=== PATIENT | female | born 1945 | race Caucasian/White ===

== ENCOUNTER 2019-06-25 17:34 | Inpatient (IN) | payer OTHER ==
[~2019-06-25] VITALS: Ht 175.3 cm; Wt 83.4 kg
[~2019-06-25 17:34] MED LIST: ATOR20TA65 PO; CARV25TA79 PO; FLUC200T52 PO; IRBE300T15 PO; LACT1CAP28 PO; METF-849 PO; PHEN-538 PO; SPIR25TA PO
--- NOTE | 2019-06-25 19:50 | ERD ---
ER Documentation Chief Complaint Chief Complaint rectal bleeding on /off 3 mths sent by pmd, pt a&ox4, HPI 74-year-old female sent in by her doctor, Dr. Vallejo, for rectal bleeding that has been intermittent for the past 3 months with associated diarrhea. She states that usually the blood is on the toilet paper but not in the toilet. She had labs done a few days ago, for which she does not know the results. She followed up with her primary care doctor today who told her that she needed to come to the ER and was not given any other information. She complains of chronic dysuria and frequency but has been ruled out for UTI. She also complains of rectal pain and feels like she has hemorrhoids. Her last colonoscopy was about 6 years ago during which time she was diagnosed with polyps but no other abnormalities were found. She denies any dizziness, shortness of breath, chest pain. She complains of suprapubic pain which is chronic, aching, nonradiating. No nausea, vomiting, fever, chills. No hematuria. Of note, patient also fell last week in her bathroom. It was a mechanical fall and she twisted her left ankle and complains of lateral left ankle pain but is able to ambulate on the leg. ROS All systems reviewed and are negative except as per history of present illness. Medications Home Meds Reported Medications Phenazopyridine Hcl* (Pyridium*) 200 Mg Tab, 200 MG PO TID PRN for PAIN, TAB 06/26/19 Carvedilol* (Carvedilol*) 25 Mg Tablet, 25 MG PO DAILY for 90 Days 06/26/19 Spironolactone* (Aldactone*) 25 Mg Tablet, 25 MG PO DAILY for 90 Days 06/26/19 Irbesartan* (Irbesartan*) 300 Mg Tablet, 300 MG PO DAILY for 90 Days, #90 06/26/19 Atorvastatin Calcium (Atorvastatin Calcium) 20 Mg Tablet, 20 MG PO DAILY for 90 Days, #90 TAB 06/26/19 Metformin* (Glucophage*) 500 Mg Tab, 500 MG PO QPM for 90 Days 06/26/19 Allergies Allergies: Coded Allergies: Estrogens (Unverified Allergy, Unknown, 06/25/19) PMhx/Soc History of Surgery: Yes (I called lumpectomy) Hx Cardiac Disorders: Yes (Hypertension, hyperlipidemia) Hx Miscellaneous Medical Probl: Yes ( breast cancer, diabetes) Hx Alcohol Use: No Hx Substance Use: No Hx Tobacco Use: No FmHx Family History: diabetes Physical Exam Vitals Vital Signs Date Temp Pulse Resp B/P (MAP) Pulse Ox O2 O2 Flow FiO2 Time Delivery Rate 06/25/19 97.8 70 18 160/76 97 Room Air 19:10 (104) 06/25/19 97.8 75 18 160/76 97 17:54 (104) Physical Exam Const: No acute distress Head: Atraumatic Eyes: Normal Conjunctiva ENT: Normal External Ears, Nose and Mouth. Neck: Full range of motion. No meningismus. Resp: Clear to auscultation bilaterally Cardio: Regular rate and rhythm, no murmurs Abd: Soft, non tender, non distended. Normal bowel sounds Skin: No petechiae or rashes Back: No midline or flank tenderness Ext: No cyanosis, or edema Neur: Awake and alert Psych: Normal Mood and Affect Result Diagram: 06/29/1943906/29/19439 Results 24 hrs Laboratory Tests Test 06/25/19 19:42 White Blood Count 6.3 10^3/ul Red Blood Count 3.48 10^6/ul Hemoglobin 11.3 g/dl Hematocrit 35.7 % Mean Corpuscular Volume 102.6 fl Mean Corpuscular Hemoglobin 32.5 pg Mean Corpuscular Hemoglobin Concent 31.7 g/dl Red Cell Distribution Width 12.2 % Platelet Count 210 10^3/UL Mean Platelet Volume 8.7 fl Immature Granulocytes % 0.500 % Neutrophils % 69.7 % Lymphocytes % 20.9 % Monocytes % 5.4 % Eosinophils % 3.2 % Basophils % 0.3 % Nucleated Red Blood Cells % 0.0 /100WBC Immature Granulocytes # 0.030 10^3/ul Neutrophils # 4.4 10^3/ul Lymphocytes # 1.3 10^3/ul Monocytes # 0.3 10^3/ul Eosinophils # 0.2 10^3/ul Basophils # 0.0 10^3/ul Nucleated Red Blood Cells # 0.0 10^3/ul Prothrombin Time 12.8 Sec Prothrombin Time Ratio 1.0 INR International Normalized Ratio 0.95 Activated Partial Thromboplast Time 24.7 Sec Sodium Level 142 mmol/L Potassium Level 6.2 mmol/L Chloride Level 115 mmol/L Carbon Dioxide Level 17 mmol/L Anion Gap 10 Blood Urea Nitrogen 40 mg/dl Creatinine 1.45 mg/dl Est Glomerular Filtrat Rate mL/min mL/min Glucose Level 155 mg/dl Calcium Level 10.0 mg/dl Total Bilirubin 1.4 mg/dl Direct Bilirubin 0.00 mg/dl Indirect Bilirubin 1.4 mg/dl Aspartate Amino Transf (AST/SGOT) 18 IU/L Alanine Aminotransferase (ALT/SGPT) 17 IU/L Alkaline Phosphatase 78 IU/L Total Protein 7.3 g/dl Albumin 4.1 g/dl Globulin 3.20 g/dl Albumin/Globulin Ratio 1.28 Current Medications Medications Dose Sig/Koby Start Time Status Last (Trade) Ordered Route PRN Stop Time Admin Dose Reason Admin Sodium 1,000 ml @ Q1H STAT 06/25/19 DC 06/25/19 Chloride 1,000 mls/hr IV 20:25 20:30 06/25/19 21:24 Sodium 30 gm ONCE STAT 06/25/19 DC Polystyrene PO 20:43 Sulfonate 06/25/19 20:45 (Kayexelate 15 Gm Kit (Powder+Sorbi carmelo)) Insulin 10 unit ONCE STAT 06/25/19 DC 06/25/19 Human IVP 20:43 22:24 Regular 06/25/19 20:45 (Humulin R) Procedures/MDM EMERGENT LABS AND DIAGNOSTIC STUDIES: Lab Results above were reviewed and interpreted by me. CBC: Mild anemia, no evidence of infection CMP: Elevated BUN and creatinine, concerning for acute renal failure with associated acidosis and hyperkalemia of 6.2. Elevated bilirubin but otherwise normal liver studies. Coags unremarkable 12-lead EKG was interpreted by Kali Medrano MD: Sinus rhythm with PVCs at 71 bpm Left axis deviation Right bundle branch block No acute ST or T wave changes suggestive of acute ischemia or STEMI. Radiology Results as interpreted by Radiology below were reviewed by SStefani Medrano MD: Left ankle x-ray shows soft tissue swelling, no acute fracture dislocation CT abdomen and pelvis: 1. Thick-walled urinary bladder with edema in the surrounding fat is concerning for cystitis. Recommend correlation with urinalysis. 2. Mild colonic diverticulosis without diverticulitis. The cecum is on a long mesentery and is situated in the left upper quadrant of the abdomen that could predispose to volvulus. Negative for evidence of volvulus or complications at this time. The appendix is not visualized. 3. Scattered pulmonary nodules in the right lower lobe measure up to 0.4 cm. In the absence of risk factors or a known primary neoplasm, no further imaging is required per 2017 Fleischner Society guidelines. In a high risk patient, follow- up low-dose chest CT at 12 months is optional. Alternatively, recommend correlation with previous imaging. 4. Please note that in the absence of intravenous contrast the study does not evaluate the patency of the vasculature. Initial Nursing notes reviewed. Previous Medical Records requested via the Electronic Health Record. EMERGENCY DEPARTMENT COURSE / MEDICAL DECISION MAKING: Patient presents after referral from her primary care doctor for several months of rectal bleeding. Patient is hemodynamically stable but is pale on exam. However work-up did not show any evidence of significant anemia. Her CT did show evidence of diverticulosis, which is likely the etiology of her rectal bleeding, however she will need further work-up with colonoscopy. More importantly, her renal function seems to be impaired on labs done today with evidence of hyperkalemia, for which treatment was initiated. Patient is not stable for discharge and will require further work-up for this and her rectal bleeding. Plan to admit. Critical Care Time: 40 minutes Treatments/Evaluations: Close monitoring and treatment of unstable vital signs, cardiorespiratory, and neurologic status, while maintaining tight balance of fluid, respiratory, and cardiac interventions. This time includes discussing the case with the patient and the patients family. This time does not include all procedures stated elsewhere in this record. This time also includes reviewing old records, labs and radiological studies. This time includes examining and re- examining the patient. Additionally, this time also includes arranging care with admitting and consulting physicians. Accepting Care Team: Current data and ongoing care discussed. Time: Time of admission Primary Provider: Dr. Lombardo Departure Diagnosis: Primary Impression: Chronic GI bleeding Additional Impressions: Hyperkalemia Acute renal failure Acute renal failure type: unspecified Qualified Codes: N17.9 - Acute kidney failure, unspecified Condition: Serious MONE MEDRANO MD Jun 25, 2019 19:50
[2019-06-25] MEDS ORDERED: SOD CHLORIDE 0.9% 1,000 ML IV STA (20:25)
[2019-06-25] MEDS ORDERED: SODIUM POLYSTYRENE 15 GM KIT (POWDER + SORBITOL) PO STA (20:43)
[2019-06-25] MEDS ORDERED: INSULIN REGULAR, HUMAN 100 UNIT/1 ML 3ML VIAL IVP STA (20:43)
[2019-06-25] MEDS ORDERED: DEXTROSE 50% 50 ML SYRINGE IV PRN (21:00)
[2019-06-25] MEDS ORDERED: DEXTROSE 50% 50 ML SYRINGE IV ONE (21:00)
[2019-06-25] MEDS ORDERED: ONDANSETRON 4 MG INJ IV PRN (21:00)
[2019-06-25] MEDS ORDERED: NA POLYST SULFON 15 GM/60 ML BTL PO SCH (21:54)
[2019-06-25] MEDS: ACETAMINOPHEN 325 MG TAB PO PRN (22:24)
[2019-06-25 23:01] VITALS: Ht 175.3 cm; Wt 83.4 kg
[2019-06-25 23:03] VITALS: BP 141/74; PULSE 74; RESP 16
[2019-06-26] MEDS ORDERED: ONDANSETRON 4 MG INJ IV PRN (00:30)
[2019-06-26] MEDS ORDERED: ALBUTEROL/IPRATROPIUM (NEB) 3 ML AMP HHN PRN (00:30)
[2019-06-26] MEDS ORDERED: CEFTRIAXONE 1 GM/50 ML (PMX) 50 ML IVPB SCH (00:30)
[2019-06-26 04:09] VITALS: BP 134/64; PULSE 67; RESP 18
[2019-06-26] MEDS: ACETAMINOPHEN 325 MG TAB PO PRN ×2 (06:06→17:39)
[2019-06-26] MEDS: PANTOPRAZOLE (EC) 40 MG TAB PO SCH ×2 (06:06→17:42)
--- NOTE | 2019-06-26 06:21 | HP ---
Date/Time of Note Date/Time of Note DATE: 06/26/19 TIME: 06:14 Assessment/Plan VTE Prophylaxis SCD applied (from Nsg): Yes Pharmacological prophylaxis: heparin Lines/Catheters IV Catheter Type (from Nrsg): Peripheral IV Urinary Cath still in place: No Assessment/Plan Assessment/Plan 1. Rectal bleeding -Check FOBT -GI consult -Last colonoscopy 6 years ago, per patient, it showed 2 polyps (benign) 2. Diarrhea: Patient was recently diagnosed with UTI and has been taking different antibiotics -Stool studies including C. difficile -See #1 3. Scattered pulmonary nodules -Patient with a history of breast carcinoma status post lumpectomy. Patient never had a chemoradiation. Patient has never been told about pulmonary nodules. -Plan is for a dedicated chest CT. High-resolution of the been preferable, however because of her renal insufficiency, will obtain without -Pulmonary and oncology consult 4. Acute renal insufficiency -IV fluid for now 5. Breast cancer, status post lumpectomy 2 years ago: No chemo/radiation -Per patient, in remission 6. Dyslipidemia: Continue statin 7. History of pulmonary embolism 8. Left ankle pain/swelling -X-ray shows soft tissue swelling with ligamentous and tendinous injury not been able to be excluded -Will consider MRI based on clinical course -Consider podiatry consult 9. Hypertension: Adjust BP meds as needed 10. Type 2 diabetes: Continue metformin Result Diagram: 06/25/19194106/25/192056 Results 24hrs Laboratory Tests Test 06/25/19 19:42 06/25/19 20:57 06/25/19 21:30 White Blood Count 6.3 Red Blood Count 3.48 L Hemoglobin 11.3 L Hematocrit 35.7 L Mean Corpuscular Volume 102.6 H Mean Corpuscular Hemoglobin 32.5 Mean Corpuscular Hemoglobin Concent 31.7 L Red Cell Distribution Width 12.2 Platelet Count 210 Mean Platelet Volume 8.7 Immature Granulocytes % 0.500 H Neutrophils % 69.7 Lymphocytes % 20.9 Monocytes % 5.4 Eosinophils % 3.2 Basophils % 0.3 Nucleated Red Blood Cells % 0.0 Immature Granulocytes # 0.030 Neutrophils # 4.4 Lymphocytes # 1.3 Monocytes # 0.3 Eosinophils # 0.2 Basophils # 0.0 Nucleated Red Blood Cells # 0.0 Prothrombin Time 12.8 Prothrombin Time Ratio 1.0 INR International Normalized Ratio 0.95 Activated Partial Thromboplast Time 24.7 Sodium Level 142 Potassium Level 6.2 *H 5.8 H Chloride Level 115 H Carbon Dioxide Level 17 L Anion Gap 10 Blood Urea Nitrogen 40 H Creatinine 1.45 H Est Glomerular Filtrat Rate mL/min Glucose Level 155 Calcium Level 10.0 Total Bilirubin 1.4 H Direct Bilirubin 0.00 Indirect Bilirubin 1.4 H Aspartate Amino Transf (AST/SGOT) 18 Alanine Aminotransferase (ALT/SGPT) 17 Alkaline Phosphatase 78 Total Protein 7.3 Albumin 4.1 Globulin 3.20 Albumin/Globulin Ratio 1.28 Urine Color DYLAN Urine Clarity CLEAR Urine pH 5.0 Urine Specific [place] 1.013 Urine Ketones NEGATIVE Urine Nitrite POSITIVE A Urine Bilirubin NEGATIVE Urine Urobilinogen 2+ H Urine Leukocyte Esterase NEGATIVE Urine Microscopic RBC 5 Urine Microscopic WBC 176 H Urine Mucus FEW A Urine Hemoglobin NEGATIVE Urine Glucose NEGATIVE Urine Total Protein 1+ H HPI/ROS Admit Date/Time Admit Date/Time Jun 25, 2019 at 20:47 Hx of Present Illness Patient is a 74-year-old female with a history of hypertension, type 2 diabetes, dyslipidemia, breast cancer status post lumpectomy, pulmonary embolism who presented to the ER complaining of rectal bleeding and diarrhea. Symptom has been going on for the past several months. Denied abdominal pain. Patient stated she has been on the process of being referred to a GI doctor for colonoscopy and has been taking time and because of insurance reason. She did have a colonoscopy 6 years ago which showed 2 polyps (benign) When presented to the ER, vitals were stable. Labs shows a hemoglobin of 11.3, creatinine 1.45, potassium 6.2. CT abdomen/pelvis shows cystitis, diverti culosis, scattered pulmonary nodules, measuring 0.4 cm in right lower lung. Left ankle x-ray shows potential soft tissue swelling, ligamentous and tendinous injury is not excluded. Also noted with large plantar calcaneal heel spur PMH/Family/Social Past Medical History Past Surgical Hx: other (see hpi) Family History Significant Family History: no pertinent family hx Social History Alcohol Use: other Smoking Status: Unknown if ever smoked Drug Use: other Exam Exam Constitutional: no acute distress Head: normocephalic, atraumatic Eyes: EOMI, PERRL Respiratory: clear to auscultation, normal air movement Cardiovascular: no skipped beat Gastrointestinal: soft, non-tender Extremities: palpable pulse Medications Current Medications Dextrose (D50w Syringe) ONCE PRN IV DECREASED GLUCOSE; Start 06/25/19 at 21:00 Ondansetron HCl (Zofran Inj) 4 mg ER BRIDGE PRN IV NAUSEA/VOMITING Last administered on 06/25/19at 22:24; Admin Dose 4 MG; Start 06/25/19 at 21:00; Stop 06/26/19 at 20:59 Acetaminophen (Tylenol Tab) 650 mg ER BRIDGE PRN PO .MILD PAIN 1-3 OR TEMP Last administered on 06/26/19at 06:06; Admin Dose 650 MG; Start 06/25/19 at 21:00; Stop 06/26/19 at 20:59 IV Flush (NS 3 ml) 3 ml PER PROTOCOL IV ; Start 06/26/19 at 00:30 Ondansetron HCl (Zofran Inj) 4 mg Q6H PRN IV NAUSEA/VOMITING; Start 06/26/19 at 00:30 Acetaminophen (Tylenol Tab) 650 mg Q6H PRN PO .PAIN 1-3 OR TEMP; Start 06/26/19 at 00:30 Pantoprazole (Protonix Tab) 40 mg BID@0600,1800 PO Last administered on 06/26/19at 06:06; Admin Dose 40 MG; Start 06/26/19 at 06:00 Albuterol/ Ipratropium (Duoneb) 3 ml Q2H RESP THERAPY PRN HHN SHORTNESS OF BREATH; Start 06/26/19 at 00:30 Ceftriaxone Sodium 50 ml @ 100 mls/hr Q24H IVPB Last administered on 06/26/19at 00:30; Admin Dose 100 MLS/HR; Start 06/26/19 at 00:30 Coded Allergies: Estrogens (Unverified Allergy, Unknown, 06/25/19) Social History Smoking Status: Former smoker Exam/Review of Systems Vital Signs Vitals Vital Signs Date Temp Pulse Resp B/P (MAP) Pulse Ox O2 O2 Flow FiO2 Time Delivery Rate 06/26/19 97.5 67 18 134/64 96 Room Air 04:09 (87) TATE CORREIA MD Jun 26, 2019 06:21
[2019-06-26 07:29] VITALS: BP 150/66; PULSE 71; RESP 22
[2019-06-26 11:33] VITALS: BP 140/65; PULSE 67; RESP 22
[2019-06-26] MEDS: PIPER-TAZO 3.375 GM IV (PMX) 100 ML IVPB SCH ×2 (12:04→17:40)
[2019-06-26 15:36] VITALS: BP 104/51; PULSE 66; RESP 22
--- NOTE | 2019-06-26 18:08 | CONS ---
Assessment/Plan Assessment/Plan Hospital Course (Demo Recall) Summary Assessment and Plan: Assessment: Hematochezia Diarrhea x1 year Scattered pulmonary nodules - CT chest- pending KANDI Breast cancer -Status post lumpectomy 2 years ago, No chemo/radiation -Per patient, in remission Dyslipidemia Hx of pulmonary embolism Hypertension Diabetes mellitus, type II Plan: Clear liquid diet in am Will start prep tomorrow for colonoscopy Monday -to further assess chronic diarrhea and hematochezia Endoscopy - risks/benefits/alternatives/indications of procedure and sedation/anesthesia discussed with patient who states understanding and gives informed consent to proceed. Stool studies pending Patient seen in collaboration with Dr. Montejo CC: SEGUNDO MONTEJO MD ; Consultation Date/Type/Reason Admit Date/Time Jun 25, 2019 at 20:47 Date of Consultation: Jun 26, 2019 Type of Consult GI Reason for Consultation Diarrhea Hematochezia Date/Time of Note DATE: 06/26/19 TIME: 17:23 Hx of Present Illness This is a 74-year-old female with past medical history of hypertension, diabetes mellitus, dyslipidemia, breast cancer status post lumpectomy, PE who presented to the hospital with complaints of hematochezia and diarrhea. Patient states she has had hematochezia on and off for an extended period of time but has been progressively worse. She previous had a colonoscopy about 6 years ago per p atient polyps and hemorrhoids. She also notes ongoing diarrhea which started about 1 year ago and seems to make it better or worse. She denies abdominal pain, melena, nausea or vomiting. Stool studies have been ordered and are currently pending. Discussed plan for colonoscopy Monday. I reviewed ris ks/benefits of sedation and procedure patient verbalized understanding and is agreeable. Review of Systems: A 12 system, review was conducted and is negative except as noted in the HPI or here. Past Medical History Home Meds Reported Medications Phenazopyridine Hcl* (Pyridium*) 200 Mg Tab, 200 MG PO TID PRN for PAIN, TAB 06/26/19 Carvedilol* (Carvedilol*) 25 Mg Tablet, 25 MG PO DAILY for 90 Days 06/26/19 Spironolactone* (Aldactone*) 25 Mg Tablet, 25 MG PO DAILY for 90 Days 06/26/19 Irbesartan* (Irbesartan*) 300 Mg Tablet, 300 MG PO DAILY for 90 Days, #90 06/26/19 Atorvastatin Calcium (Atorvastatin Calcium) 20 Mg Tablet, 20 MG PO DAILY for 90 Days, #90 TAB 06/26/19 Metformin* (Glucophage*) 500 Mg Tab, 500 MG PO QPM for 90 Days 06/26/19 Medications Current Medications Dextrose (D50w Syringe) ONCE PRN IV DECREASED GLUCOSE; Start 06/25/19 at 21:00 Ondansetron HCl (Zofran Inj) 4 mg ER BRIDGE PRN IV NAUSEA/VOMITING Last administered on 06/25/19at 22:24; Admin Dose 4 MG; Start 06/25/19 at 21:00; Stop 06/26/19 at 20:59 Acetaminophen (Tylenol Tab) 650 mg ER BRIDGE PRN PO .MILD PAIN 1-3 OR TEMP Last administered on 06/26/19at 06:06; Admin Dose 650 MG; Start 06/25/19 at 21:00; Stop 06/26/19 at 20:59 IV Flush (NS 3 ml) 3 ml PER PROTOCOL IV ; Start 06/26/19 at 00:30 Ondansetron HCl (Zofran Inj) 4 mg Q6H PRN IV NAUSEA/VOMITING; Start 06/26/19 at 00:30 Acetaminophen (Tylenol Tab) 650 mg Q6H PRN PO .PAIN 1-3 OR TEMP; Start 06/26/19 at 00:30 Pantoprazole (Protonix Tab) 40 mg BID@0600,1800 PO Last administered on 06/26/19at 06:06; Admin Dose 40 MG; Start 06/26/19 at 06:00 Albuterol/ Ipratropium (Duoneb) 3 ml Q2H RESP THERAPY PRN HHN SHORTNESS OF BREATH; Start 06/26/19 at 00:30 Piperacillin Sod/ Tazobactam Sod 100 ml @ 200 mls/hr Q6 IVPB Last administered on 06/26/19at 12:04; Admin Dose 200 MLS/HR; Start 06/26/19 at 12:00 Allergies: Coded Allergies: Estrogens (Unverified Allergy, Unknown, 06/25/19) Social History Smoking Status: Former smoker Exam/Review of Systems Exam Vitals Vital Signs Date Temp Pulse Resp B/P (MAP) Pulse Ox O2 O2 Flow FiO2 Time Delivery Rate 06/26/19 98.6 66 22 104/51 96 Room Air 15:36 (68) Exam PHYSICAL EXAMINATION: GENERAL: Alert & oriented x 3, in no acute distress SKIN: No lesions. HEAD: Normocephalic, atraumatic, no tenderness. EYES: Pupils equal reactive to light and accommodation, no discharge. EARS/NOSE AND THROAT: Ears normal, nose normal. NECK: Supple, no masses CHEST: Inspection within normal limits. CARDIOVASCULAR: Heart: Regular rate and rhythm. RESPIRATORY: Lungs clear to auscultation and percussion, no wheezing, no rubs GASTROINTESTINAL AND LIVER: Abdomen: Soft, non tenderness, non-distended, no hernias, normoactive bowel sounds. Rectal: Deferred. EXTREMITIES: No cyanosis, clubbing or edema. Results Result Diagram: 06/26/19 0611 06/26/19 0612 Results 24hrs Laboratory Tests Test 06/25/19 19:42 06/25/19 20:57 06/25/19 21:30 06/26/19 06:11 White Blood Count 6.3 6.6 Red Blood Count 3.48 L 3.32 L Hemoglobin 11.3 L 10.7 L Hematocrit 35.7 L 35.0 L Mean Corpuscular 102.6 H 105.4 H Volume Mean Corpuscular 32.5 32.2 Hemoglobin Mean Corpuscular 31.7 L 30.6 L Hemoglobin Concent Red Cell 12.2 12.5 Distribution Width Platelet Count 210 197 Mean Platelet Volume 8.7 8.9 Immature 0.500 H 0.500 H Granulocytes % Neutrophils % 69.7 65.1 Lymphocytes % 20.9 24.5 Monocytes % 5.4 6.9 Eosinophils % 3.2 2.7 Basophils % 0.3 0.3 Nucleated Red Blood 0.0 0.0 Cells % Immature 0.030 0.030 Granulocytes # Neutrophils # 4.4 4.3 Lymphocytes # 1.3 1.6 Monocytes # 0.3 0.5 Eosinophils # 0.2 0.2 Basophils # 0.0 0.0 Nucleated Red Blood 0.0 0.0 Cells # Prothrombin Time 12.8 Prothrombin Time 1.0 Ratio INR International 0.95 Normalized Ratio Activated 24.7 Partial Thromboplast Time Sodium Level 142 Potassium Level 6.2 *H 5.8 H Chloride Level 115 H Carbon Dioxide Level 17 L Anion Gap 10 Blood Urea Nitrogen 40 H Creatinine 1.45 H Est Glomerular Filtrat Rate mL/min Glucose Level 155 Calcium Level 10.0 Total Bilirubin 1.4 H Direct Bilirubin 0.00 Indirect Bilirubin 1.4 H Aspartate Amino 18 Transf (AST/SGOT) Alanine 17 Aminotransferase (AL T/SGPT) Alkaline Phosphatase 78 Total Protein 7.3 Albumin 4.1 Globulin 3.20 Albumin/Globulin 1.28 Ratio Urine Color DYLAN Urine Clarity CLEAR Urine pH 5.0 Urine Specific 1.013 [place] Urine Ketones NEGATIVE Urine Nitrite POSITIVE A Urine Bilirubin NEGATIVE Urine Urobilinogen 2+ H Urine Leukocyte NEGATIVE Esterase Urine Microscopic 5 RBC Urine Microscopic 176 H WBC Urine Mucus FEW A Urine Hemoglobin NEGATIVE Urine Glucose NEGATIVE Urine Total Protein 1+ H Test 06/26/19 06:12 Sodium Level 142 Potassium Level 5.3 H Chloride Level 119 H Carbon Dioxide Level 15 L Anion Gap 8 Blood Urea Nitrogen 35 H Creatinine 1.24 H Est Glomerular Filtrat Rate mL/min Glucose Level 113 # Calcium Level 9.3 Magnesium Level 1.5 L Total Bilirubin 0.6 Direct Bilirubin 0.00 Indirect Bilirubin 0.6 Aspartate Amino 20 Transf (AST/SGOT) Alanine 19 Aminotransferase (AL T/SGPT) Alkaline Phosphatase 64 Total Protein 6.6 Albumin 3.5 Globulin 3.10 Albumin/Globulin 1.12 Ratio Medications Medication Current Medications Dextrose (D50w Syringe) ONCE PRN IV DECREASED GLUCOSE; Start 06/25/19 at 21:00 Ondansetron HCl (Zofran Inj) 4 mg ER BRIDGE PRN IV NAUSEA/VOMITING Last administered on 06/25/19at 22:24; Admin Dose 4 MG; Start 06/25/19 at 21:00; Stop 06/26/19 at 20:59 Acetaminophen (Tylenol Tab) 650 mg ER BRIDGE PRN PO .MILD PAIN 1-3 OR TEMP Last administered on 06/26/19at 06:06; Admin Dose 650 MG; Start 06/25/19 at 21:00; Stop 06/26/19 at 20:59 IV Flush (NS 3 ml) 3 ml PER PROTOCOL IV ; Start 06/26/19 at 00:30 Ondansetron HCl (Zofran Inj) 4 mg Q6H PRN IV NAUSEA/VOMITING; Start 06/26/19 at 00:30 Acetaminophen (Tylenol Tab) 650 mg Q6H PRN PO .PAIN 1-3 OR TEMP; Start 06/26/19 at 00:30 Pantoprazole (Protonix Tab) 40 mg BID@0600,1800 PO Last administered on 06/26/19at 06:06; Admin Dose 40 MG; Start 06/26/19 at 06:00 Albuterol/ Ipratropium (Duoneb) 3 ml Q2H RESP THERAPY PRN HHN SHORTNESS OF BREATH; Start 06/26/19 at 00:30 Piperacillin Sod/ Tazobactam Sod 100 ml @ 200 mls/hr Q6 IVPB Last administered on 06/26/19at 12:04; Admin Dose 200 MLS/HR; Start 06/26/19 at 12:00 BONNIE SORIANO Jun 26, 2019 17:44
--- NOTE | 2019-06-26 18:27 | PN ---
Date/Time of Note Date/Time of Note DATE: 06/26/19 TIME: 13:08 Assessment/Plan VTE Prophylaxis Risk score (from Ns)>0 risk: 2 SCD applied (from [facility] [place]): Yes Pharmacological prophylaxis: NA/contraindicated Pharm contraindication: bleeding Lines/Catheters IV Catheter Type (from [facility] Saline Lock Urinary Cath still in place: No Assessment/Plan Hospital Course 74-year-old female with a history of hypertension, type 2 diabetes, dyslipidemia, breast cancer status post lumpectomy, pulmonary embolism who presented to the ER complaining of rectal bleeding and diarrhea. 1. Rectal bleeding - Check FOBT / GI consult / Last colonoscopy 6 years ago, per patient, it showed 2 polyps (benign) 2. Diarrhea: Patient was recently diagnosed with UTI and has been taking different antibiotics / Stool studies including C. difficile / See #1 3. Scattered pulmonary nodules: -Patient with a history of breast carcinoma status post lumpectomy. Patient never had a chemoradiation. Patient has never been told about pulmonary nodule - dedicated chest CT. High-resolution of the been preferable, however because of her renal insufficiency, will obtain without / Pulmonary and oncology consult if indicated 4. Acute renal insufficiency with metabolic acidosis and hyperkalemia : IV fluid for now, potassium levels improved / no EKG changes / nephro consult 5. Breast cancer, status post lumpectomy 2 years ago: No chemo/radiation / Per patient, in remission 6. Dyslipidemia: Continue statin 7. History of pulmonary embolism 8. Left ankle pain/swelling : recent mechanical fall / X-ray shows soft tissue swelling with ligamentous and tendinous injury not been able to be excluded / further imaging with CT to r/o occult fracture 9. Hypertension: Adjust BP meds as needed 10. Type 2 diabetes: hold metformin for acidosis and renal failure : ssi and basal insulin for now 11. Nitrite + UTI: f/u cultures / empiric abx 12. Hypomagnesemia: replete Result Diagram: 06/26/19 0611 06/26/19 0612 Results 24hrs Laboratory Tests Test 06/25/19 19:42 06/25/19 20:57 06/25/19 21:30 06/26/19 06:11 White Blood Count 6.3 6.6 Red Blood Count 3.48 L 3.32 L Hemoglobin 11.3 L 10.7 L Hematocrit 35.7 L 35.0 L Mean Corpuscular 102.6 H 105.4 H Volume Mean Corpuscular 32.5 32.2 Hemoglobin Mean Corpuscular 31.7 L 30.6 L Hemoglobin Concent Red Cell 12.2 12.5 Distribution Width Platelet Count 210 197 Mean Platelet Volume 8.7 8.9 Immature 0.500 H 0.500 H Granulocytes % Neutrophils % 69.7 65.1 Lymphocytes % 20.9 24.5 Monocytes % 5.4 6.9 Eosinophils % 3.2 2.7 Basophils % 0.3 0.3 Nucleated Red Blood 0.0 0.0 Cells % Immature 0.030 0.030 Granulocytes # Neutrophils # 4.4 4.3 Lymphocytes # 1.3 1.6 Monocytes # 0.3 0.5 Eosinophils # 0.2 0.2 Basophils # 0.0 0.0 Nucleated Red Blood 0.0 0.0 Cells # Prothrombin Time 12.8 Prothrombin Time 1.0 Ratio INR International 0.95 Normalized Ratio Activated 24.7 Partial Thromboplast Time Sodium Level 142 Potassium Level 6.2 *H 5.8 H Chloride Level 115 H Carbon Dioxide Level 17 L Anion Gap 10 Blood Urea Nitrogen 40 H Creatinine 1.45 H Est Glomerular Filtrat Rate mL/min Glucose Level 155 Calcium Level 10.0 Total Bilirubin 1.4 H Direct Bilirubin 0.00 Indirect Bilirubin 1.4 H Aspartate Amino 18 Transf (AST/SGOT) Alanine 17 Aminotransferase (AL T/SGPT) Alkaline Phosphatase 78 Total Protein 7.3 Albumin 4.1 Globulin 3.20 Albumin/Globulin 1.28 Ratio Urine Color DYLAN Urine Clarity CLEAR Urine pH 5.0 Urine Specific 1.013 [place] Urine Ketones NEGATIVE Urine Nitrite POSITIVE A Urine Bilirubin NEGATIVE Urine Urobilinogen 2+ H Urine Leukocyte NEGATIVE Esterase Urine Microscopic 5 RBC Urine Microscopic 176 H WBC Urine Mucus FEW A Urine Hemoglobin NEGATIVE Urine Glucose NEGATIVE Urine Total Protein 1+ H Test 06/26/19 06:12 Sodium Level 142 Potassium Level 5.3 H Chloride Level 119 H Carbon Dioxide Level 15 L Anion Gap 8 Blood Urea Nitrogen 35 H Creatinine 1.24 H Est Glomerular Filtrat Rate mL/min Glucose Level 113 # Calcium Level 9.3 Magnesium Level 1.5 L Total Bilirubin 0.6 Direct Bilirubin 0.00 Indirect Bilirubin 0.6 Aspartate Amino 20 Transf (AST/SGOT) Alanine 19 Aminotransferase (AL T/SGPT) Alkaline Phosphatase 64 Total Protein 6.6 Albumin 3.5 Globulin 3.10 Albumin/Globulin 1.12 Ratio Subjective 24 Hr Interval Summary Free Text/Dictation no new issues, no rectal bleed today so far Exam/Review of Systems Exam Vitals Vital Signs Date Temp Pulse Resp B/P (MAP) Pulse Ox O2 O2 Flow FiO2 Time Delivery Rate 06/26/19 98.6 66 22 104/51 96 Room Air 15:36 (68) Exam Constitutional: alert, oriented Head: atraumatic, normocephalic Neck: non-tender, supple Respiratory: clear to auscultation Cardiovascular: regular rate and rhythm Gastrointestinal: S/ NT / ND / +BS Extremities: no edema, good radial pulses Results Results 24hrs Laboratory Tests Test 06/25/19 19:42 06/25/19 20:57 06/25/19 21:30 06/26/19 06:11 White Blood Count 6.3 6.6 Red Blood Count 3.48 L 3.32 L Hemoglobin 11.3 L 10.7 L Hematocrit 35.7 L 35.0 L Mean Corpuscular 102.6 H 105.4 H Volume Mean Corpuscular 32.5 32.2 Hemoglobin Mean Corpuscular 31.7 L 30.6 L Hemoglobin Concent Red Cell 12.2 12.5 Distribution Width Platelet Count 210 197 Mean Platelet Volume 8.7 8.9 Immature 0.500 H 0.500 H Granulocytes % Neutrophils % 69.7 65.1 Lymphocytes % 20.9 24.5 Monocytes % 5.4 6.9 Eosinophils % 3.2 2.7 Basophils % 0.3 0.3 Nucleated Red Blood 0.0 0.0 Cells % Immature 0.030 0.030 Granulocytes # Neutrophils # 4.4 4.3 Lymphocytes # 1.3 1.6 Monocytes # 0.3 0.5 Eosinophils # 0.2 0.2 Basophils # 0.0 0.0 Nucleated Red Blood 0.0 0.0 Cells # Prothrombin Time 12.8 Prothrombin Time 1.0 Ratio INR International 0.95 Normalized Ratio Activated 24.7 Partial Thromboplast Time Sodium Level 142 Potassium Level 6.2 *H 5.8 H Chloride Level 115 H Carbon Dioxide Level 17 L Anion Gap 10 Blood Urea Nitrogen 40 H Creatinine 1.45 H Est Glomerular Filtrat Rate mL/min Glucose Level 155 Calcium Level 10.0 Total Bilirubin 1.4 H Direct Bilirubin 0.00 Indirect Bilirubin 1.4 H Aspartate Amino 18 Transf (AST/SGOT) Alanine 17 Aminotransferase (AL T/SGPT) Alkaline Phosphatase 78 Total Protein 7.3 Albumin 4.1 Globulin 3.20 Albumin/Globulin 1.28 Ratio Urine Color DYLAN Urine Clarity CLEAR Urine pH 5.0 Urine Specific 1.013 [place] Urine Ketones NEGATIVE Urine Nitrite POSITIVE A Urine Bilirubin NEGATIVE Urine Urobilinogen 2+ H Urine Leukocyte NEGATIVE Esterase Urine Microscopic 5 RBC Urine Microscopic 176 H WBC Urine Mucus FEW A Urine Hemoglobin NEGATIVE Urine Glucose NEGATIVE Urine Total Protein 1+ H Test 06/26/19 06:12 Sodium Level 142 Potassium Level 5.3 H Chloride Level 119 H Carbon Dioxide Level 15 L Anion Gap 8 Blood Urea Nitrogen 35 H Creatinine 1.24 H Est Glomerular Filtrat Rate mL/min Glucose Level 113 # Calcium Level 9.3 Magnesium Level 1.5 L Total Bilirubin 0.6 Direct Bilirubin 0.00 Indirect Bilirubin 0.6 Aspartate Amino 20 Transf (AST/SGOT) Alanine 19 Aminotransferase (AL T/SGPT) Alkaline Phosphatase 64 Total Protein 6.6 Albumin 3.5 Globulin 3.10 Albumin/Globulin 1.12 Ratio Imaging Imaging PROCEDURE: CT ABDOMEN AND PELVIS WITHOUT CONTRAST CLINICAL INDICATION: 74-year of age, female . Lower abdominal pain. TECHNIQUE: CT of the abdomen and pelvis was performed without intravenous contrast. Oral contrast was not administered prior to the examination. Coronal and sagittal reformatted images were obtained from the axial source images. Images were reviewed on a high-resolution PACS workstation. DICOM images are available. Dose information: Based on a 32 cm phantom, the estimated radiation dose (CTDIvol mGy) for each series in this exam is 17. The estimated cumulative dose (DLP mGy-cm) is 938. One or more of the following dose reduction techniques were used: - Automated exposure control. - Adjustment of the mA and/or kV according to patient size. - Use of iterative reconstruction technique. COMPARISON: None available. FINDINGS: In the absence of intravenous contrast, the study constitutes a limited assessment of the solid organs, bowel and vessels. LUNG BASES: There are scattered pulmonary nodules in the right lower individually measuring up to 0.4 cm (3/9). Mild atelectasis at bilateral lung bases. ABDOMEN/PELVIS: Liver: Normal noncontrast appearance. Gallbladder: Normal noncontrast appearance. Bile ducts: No intrahepatic or extrahepatic biliary duct dilatation. Spleen: Normal noncontrast appearance. Pancreas: Normal noncontrast appearance. Adrenal glands: Normal noncontrast appearance. Kidneys and ureters: Normal noncontrast appearance. Negative for urinary calculi or hydronephrosis. Aorta and IVC: Atherosclerotic calcification and tortuosity of aorta and iliac vessels. Negative for abdominal aortic aneurysm. Lymph nodes: Normal noncontrast appearance. Gastrointestinal tract: There is colonic diverticulosis at the splenic flexure without diverticulitis. There is a mobile cecum on a long mesentery. The inferior ascending colon extends from the right lower quadrant the left upper quadrant mesentery adjacent to the ligament of Treitz which is the position of the cecal pole. Negative for evidence of obstruction. Bowel loops are decompressed and otherwise appear normal. Appendix: Not visualized. Bladder: Partially filled. There is mild thickening of the wall of the urinary bladder with edema in the surrounding fat. Pelvic Organs: Uterus and adnexa are unremarkable for age. Peritoneal cavity: No free fluid or free intraperitoneal air. Abdominal wall: Normal noncontrast appearance. MUSCULOSKELETAL: Bones: Osteopenia and severe degenerative changes in the spine. No suspicious bone lesions. IMPRESSION: 1. Thick-walled urinary bladder with edema in the surrounding fat is concerning for cystitis. Recommend correlation with urinalysis. 2. Mild colonic diverticulosis without diverticulitis. The cecum is on a long mesentery and is situated in the left upper quadrant of the abdomen that could predispose to volvulus. Negative for evidence of volvulus or complications at this time. The appendix is not visualized. 3. Scattered pulmonary nodules in the right lower lobe measure up to 0.4 cm. In the absence of risk factors or a known primary neoplasm, no further imaging is required per 2017 Fleischner Society guidelines. In a high risk patient, follow- up low-dose chest CT at 12 months is optional. Alternatively, recommend correlation with previous imaging. 4. Please note that in the absence of intravenous contrast the study does not evaluate the patency of the vasculature. RPTAT: HCTS Physician Juliano Date Time Electronically viewed and signed by Physician Juliano on 06/25/2019 20:36 CS/ CC: MONE MCKEON MD [phone] Medications Medication Current Medications Dextrose (D50w Syringe) ONCE PRN IV DECREASED GLUCOSE; Start 06/25/19 at 21:00 Ondansetron HCl (Zofran Inj) 4 mg ER BRIDGE PRN IV NAUSEA/VOMITING Last administered on 06/25/19at 22:24; Admin Dose 4 MG; Start 06/25/19 at 21:00; Stop 06/26/19 at 20:59 Acetaminophen (Tylenol Tab) 650 mg ER BRIDGE PRN PO .MILD PAIN 1-3 OR TEMP Last administered on 06/26/19at 17:39; Admin Dose 650 MG; Start 06/25/19 at 21:00; Stop 06/26/19 at 20:59 IV Flush (NS 3 ml) 3 ml PER PROTOCOL IV ; Start 06/26/19 at 00:30 Ondansetron HCl (Zofran Inj) 4 mg Q6H PRN IV NAUSEA/VOMITING; Start 06/26/19 at 00:30 Acetaminophen (Tylenol Tab) 650 mg Q6H PRN PO .PAIN 1-3 OR TEMP; Start 06/26/19 at 00:30 Pantoprazole (Protonix Tab) 40 mg BID@0600,1800 PO Last administered on 06/26/19at 17:42; Admin Dose 40 MG; Start 06/26/19 at 06:00 Albuterol/ Ipratropium (Duoneb) 3 ml Q2H RESP THERAPY PRN HHN SHORTNESS OF ELIZABETH TH; Start 06/26/19 at 00:30 Piperacillin Sod/ Tazobactam Sod 100 ml @ 200 mls/hr Q6 IVPB Last administered on 06/26/19at 17:40; Admin Dose 200 MLS/HR; Start 06/26/19 at 12:00 JOSEFINA WEEMS Jun 26, 2019 18:25
[2019-06-26 20:00] VITALS: BP 141/68; PULSE 73; RESP 18
[2019-06-26] MEDS: LACTOBACILLUS RHAMNOSUS CAP PO SCH (21:46)
[2019-06-27] VITALS: BP 135/63; PULSE 74; RESP 18
[2019-06-27] MEDS: PIPER-TAZO 3.375 GM IV (PMX) 100 ML IVPB SCH ×4 (00:39→17:36)
[2019-06-27 05:00] VITALS: BP 137/71; PULSE 77; RESP 18
[2019-06-27] MEDS: PANTOPRAZOLE (EC) 40 MG TAB PO SCH ×2 (05:33→17:35)
[2019-06-27 07:40] VITALS: BP 118/83; PULSE 76; RESP 22
[2019-06-27] MEDS ORDERED: MAGNESIUM SULFATE 2 GM/50 ML 50 ML IVPB ONE (08:00)
[2019-06-27] MEDS: LACTOBACILLUS RHAMNOSUS CAP PO SCH ×2 (08:38→21:14)
--- NOTE | 2019-06-27 10:10 | CONS ---
DATE OF ADMISSION: 06/25/2019 DATE OF CONSULTATION: 06/27/2019 TYPE OF CONSULTATION: Nephrology. REASON FOR CONSULTATION: Acute kidney injury. PHYSICIAN REQUESTING CONSULT: Josefina Weems MD. HISTORY OF PRESENT ILLNESS: This is a 74-year-old female with a past medical history of hypertension , history of diabetes, recent diagnosis of CKD, who presents to [facility] for rect al bleeding, diarrhea. The patient says she has been having symptoms ongoing for the past several mo nths. The patient states that her rectal bleeding has worsened. As a result, she came to [facility]. Upon arrival, patient had a CT scan of abdomen and pelvis which showed findings of cystiti s, diverticulosis, scattered pulmonary nodules. The patient also had a laboratory data drawn that sh owed elevated creatinine 1.45, potassium 6.2. The patient was placed on IV fluids and admitted to [facility]. In terms of patient's renal history, the patient states that she has been recently diagnosed with chr onic kidney disease and does not know what her baseline creatinine is. The patient also states that she has been on Aldactone and has occasionally been taking potassium supplements. She denies any ret inopathy or neuropathy. PAST MEDICAL HISTORY: As stated above, history of CKD, history of diabetes, hypertension, history of pulmonary embolism History of breast cancer status post lumpectomy. PAST SURGICAL HISTORY: Status post lumpectomy. FAMILY HISTORY: Kidney disease. SOCIAL HISTORY: Former smoker. MEDICATIONS: Have been reviewed. ALLERGIES: Have been reviewed. REVIEW OF SYSTEMS: A 14-point review of systems was conducted. Pertinent positives stated in HPI, o therwise negative. PHYSICAL EXAMINATION: VITAL SIGNS: Blood pressure 119/83, respiration 22, pulse 76, temperature 97.9. HEENT: Head is normocephalic. NECK: Supple. HEART: Regular rate. LUNGS: Show diminished breath sounds at the base. ABDOMEN: Soft, nontender to palpation without rebound or guarding. EXTREMITIES: Negative for clubbing, cyanosis, no edema. DERMATOLOGIC: No rashes. MUSCULOSKELETAL: No joint effusion. NEUROLOGIC: No focal deficits. MEDICATIONS: Have been reviewed. LABORATORY DATA: Has been reviewed. IMAGING STUDIES: Have been reviewed. ASSESSMENT AND PLAN: 1. Nonoliguric acute kidney injury on top of chronic kidney disease with unknown baseline creatinine . Etiology of acute kidney injury is likely multifactorial secondary to hemodynamics, HAYDEE inhibitor effect. The patient's renal function has been overall stable, mildly improving on IV hydration. Pl an at this point is to repeat UA with microanalysis, check urine electrolytes, check renal ultrasound to evaluate renal parenchyma. Otherwise, continue supportive care, renally dose all meds, defer any HAYDEE inhibitor or ARB at this time. 2. Hyperkalemia. Etiology is multifactorial secondary to acute kidney injury, Aldactone effect, ARB effect. The patient's potassium levels normalized. Continue to monitor. 3. Metabolic acidosis secondary to acute kidney injury. Continue to monitor closely on IV fluids. 4. Hypomagnesemia. Will replete with magnesium sulfate. 5. Anemia. Monitor hemoglobin and hematocrit levels. 6. Mineral bone disorder, monitor calcium and phosphorus levels. 7. Rectal bleeding. Continue to monitor. Follow up with GI. 8. Diarrhea. Continue medical management. 9. Pulmonary nodules. Will continue to monitor. The patient may require high resolution CT. Follo wup with pulmonology, oncology. 10. History of breast cancer status post lumpectomy. 11. History of pulmonary embolism. 12. Hypertension. Continue to monitor. 13. Diabetes. Continue current insulin regimen. 14. Urinary tract infection. Continue antibiotic therapy. Thank you, Dr. Weems, for this interesting consult. It will be a pleasure to follow patient with alka t melisaout the hospital course. Dictated By: JANAE SERRATO DO NR/NTS Conf#: [id number] DID#: [id number] CC: TATE CORREIA MD; JOSEFINA WEEMS MD;*[facility]*
[2019-06-27 11:58] VITALS: BP 121/62; PULSE 75; RESP 20
[2019-06-27] MEDS ORDERED: BISACODYL (EC) 5 MG TAB PO ONE (12:00)
--- NOTE | 2019-06-27 12:07 | PN ---
Date/Time of Note Date/Time of Note DATE: 06/27/19 TIME: 12:04 Assessment/Plan VTE Prophylaxis Risk score (from Ns)>0 risk: 2 SCD applied (from Ns): Yes Pharmacological prophylaxis: NA/contraindicated Pharm contraindication: bleeding Lines/Catheters IV Catheter Type (from [facility]): Saline Lock Urinary Cath still in place: No Assessment/Plan Hospital Course Summary Assessment and Plan: Assessment: Hematochezia Diarrhea x1 year Scattered pulmonary nodules - CT chest-Small bilateral pulmonary nodules. Correlation with CT scan of the chest is 6-12 months is advised. KANDI Hyperkalemia-resolved History of breast cancer -Status post lumpectomy 2 years ago, No chemo/radiation -Per patient, in remission Dyslipidemia Hx of pulmonary embolism Hypertension Diabetes mellitus, type II Plan: Clear liquid diet today. Prep for colonoscopy tomorrow N.p.o. after 06/28/2019 at 0 700 Colonoscopy tomorrow I reviewed risk/benefits of sedation and procedure patient verbalized understanding is agreeable Patient seen in collaboration with Dr. Montejo Subjective: Course reviewed with nursing staff Patient interviewed and examined All labs, imaging and other results reviewed The patient resting i bed, no episodes of rectal bleeding today. Patient currently denies nausea/vomiting or abdominal pain Exam PHYSICAL EXAMINATION: GENERAL: Alert & oriented x 3, in no acute distress SKIN: No lesions. HEAD: Normocephalic, atraumatic, no tenderness. EYES: Pupils equal reactive to light and accommodation, no discharge. EARS/NOSE AND THROAT: Ears normal, nose normal. NECK: Supple, no masses CHEST: Inspection within normal limits. CARDIOVASCULAR: Heart: Regular rate and rhythm. RESPIRATORY: Lungs clear to auscultation and percussion, no wheezing, no rubs GASTROINTESTINAL AND LIVER: Abdomen: Soft, non tenderness, non-distended, no hernias, normoactive bowel sounds. Rectal: Deferred. EXTREMITIES: No cyanosis, clubbing or edema. Result Diagram: 06/27/1933 06/27/1933 Results 24hrs Laboratory Tests Test 06/27/19 05:33 White Blood Count 6.0 Red Blood Count 2.97 L Hemoglobin 9.8 L Hematocrit 30.7 L Mean Corpuscular Volume 103.4 H Mean Corpuscular Hemoglobin 33.0 Mean Corpuscular Hemoglobin Concent 31.9 L Red Cell Distribution Width 12.5 Platelet Count 191 Mean Platelet Volume 8.8 Immature Granulocytes % 0.300 Neutrophils % 64.8 Lymphocytes % 23.9 Monocytes % 8.0 Eosinophils % 2.7 Basophils % 0.3 Nucleated Red Blood Cells % 0.0 Immature Granulocytes # 0.020 Neutrophils # 3.9 Lymphocytes # 1.4 Monocytes # 0.5 Eosinophils # 0.2 Basophils # 0.0 Nucleated Red Blood Cells # 0.0 Sodium Level 140 Potassium Level 4.7 Chloride Level 114 H Carbon Dioxide Level 18 L Anion Gap 8 Blood Urea Nitrogen 34 H Creatinine 1.32 H Est Glomerular Filtrat Rate mL/min Glucose Level 129 Calcium Level 9.2 Phosphorus Level 4.0 Magnesium Level 1.5 L Exam/Review of Systems Exam Vitals Vital Signs Date Temp Pulse Resp B/P (MAP) Pulse Ox O2 O2 Flow FiO2 Time Delivery Rate 06/27/19 97.9 76 22 118/83 96 Room Air 07:40 (95) Intake and Output 06/26/19 06/26/19 06/27/19 1515:00 23:00 07:00 IntakeIntake Total 770 ml BalanceBalance 770 ml Results Results 24hrs Laboratory Tests Test 06/27/19 05:33 White Blood Count 6.0 Red Blood Count 2.97 L Hemoglobin 9.8 L Hematocrit 30.7 L Mean Corpuscular Volume 103.4 H Mean Corpuscular Hemoglobin 33.0 Mean Corpuscular Hemoglobin Concent 31.9 L Red Cell Distribution Width 12.5 Platelet Count 191 Mean Platelet Volume 8.8 Immature Granulocytes % 0.300 Neutrophils % 64.8 Lymphocytes % 23.9 Monocytes % 8.0 Eosinophils % 2.7 Basophils % 0.3 Nucleated Red Blood Cells % 0.0 Immature Granulocytes # 0.020 Neutrophils # 3.9 Lymphocytes # 1.4 Monocytes # 0.5 Eosinophils # 0.2 Basophils # 0.0 Nucleated Red Blood Cells # 0.0 Sodium Level 140 Potassium Level 4.7 Chloride Level 114 H Carbon Dioxide Level 18 L Anion Gap 8 Blood Urea Nitrogen 34 H Creatinine 1.32 H Est Glomerular Filtrat Rate mL/min Glucose Level 129 Calcium Level 9.2 Phosphorus Level 4.0 Magnesium Level 1.5 L Medications Medication Current Medications Dextrose (D50w Syringe) ONCE PRN IV DECREASED GLUCOSE; Start 06/25/19 at 21:00 IV Flush (NS 3 ml) 3 ml PER PROTOCOL IV ; Start 06/26/19 at 00:30 Ondansetron HCl (Zofran Inj) 4 mg Q6H PRN IV NAUSEA/VOMITING; Start 06/26/19 at 00:30 Acetaminophen (Tylenol Tab) 650 mg Q6H PRN PO .PAIN 1-3 OR TEMP; Start 06/26/19 at 00:30 Pantoprazole (Protonix Tab) 40 mg BID@0600,1800 PO Last administered on 06/27/19at 05:33; Admin Dose 40 MG; Start 06/26/19 at 06:00 Albuterol/ Ipratropium (Duoneb) 3 ml Q2H RESP THERAPY PRN HHN SHORTNESS OF BREATH; Start 06/26/19 at 00:30 Piperacillin Sod/ Tazobactam Sod 100 ml @ 200 mls/hr Q6 IVPB Last administered on 06/27/19at 11:48; Admin Dose 200 MLS/HR; Start 06/26/19 at 12:00 Lactobacillus Acidophilus/ Rhamnosus (Culturelle) 1 cap BID PO Last administered on 06/27/19at 08:38; Admin Dose 1 CAP; Start 06/26/19 at 21:00 BONNIE SORIANO Jun 27, 2019 12:07
[2019-06-27 15:32] VITALS: BP 127/69; PULSE 72; RESP 22
[2019-06-27] MEDS ORDERED: MAGNESIUM CITRATE 300 ML BTL PO ONE (17:30)
[2019-06-27] MEDS ORDERED: POLYETHYLENE GLYCOL 3350 119 GM POWDER PO ONE (18:30)
--- NOTE | 2019-06-27 18:50 | PN ---
Date/Time of Note Date/Time of Note DATE: 06/27/19 TIME: 13:42 Assessment/Plan VTE Prophylaxis Risk score (from [facility] [place])>0 risk: 2 SCD applied (from [facility] [place]): Yes Pharmacological prophylaxis: NA/contraindicated Pharm contraindication: bleeding Lines/Catheters [facility] Saline Lock Urinary Cath still in place: No Assessment/Plan Hospital Course 74-year-old female with a history of hypertension, type 2 diabetes, dyslipidemia, breast cancer status post lumpectomy, pulmonary embolism who presented to the ER complaining of rectal bleeding and diarrhea. 1. Rectal bleeding - Check FOBT / GI consult / Last colonoscopy 6 years ago, per patient, it showed 2 polyps (benign)/ colonoscopy tomorrow 2. Diarrhea: Patient was recently diagnosed with UTI and has been taking different antibiotics / Stool studies including C. difficile / now having BM from prep 3. Scattered pulmonary nodules: -Patient with a history of breast carcinoma status post lumpectomy. Patient never had a chemoradiation. Patient has never been told about pulmonary nodule - dedicated chest CT : Small bilateral pulmonary nodules. Correlation with CT scan of the chest is 6-12 months is advised. 4. Acute renal insufficiency with metabolic acidosis and hyperkalemia r/o CKD : Nephro managing, Cr seems to be at baseline, tren labs, avoid nephrotoxic drugs 5. Breast cancer, status post lumpectomy 2 years ago: No chemo/radiation / Per patient, in remission 6. Dyslipidemia: Continue statin 7. History of pulmonary embolism 8. Left ankle pain/swelling : recent mechanical fall / X-ray shows soft tissue swelling with ligamentous and tendinous injury not been able to be excluded / further imaging with CT to r/o occult fracture 9. Hypertension: Adjust BP meds as needed 10. Type 2 diabetes: hold metformin for acidosis and renal failure : ssi and basal insulin for now 11. Nitrite + UTI: cultures non conclusive / empiric abx 12. Hypomagnesemia: replete Disclaimer: Inadvertent spelling and grammatical errors as well as erroneous comments are likely due to EHR/dictation software use and do not reflect on the quality of delivered patient care. They will be resolved as soon as possible once noted. Also, please note that the electronic time recorded on this node does not necessarily reflect the actual time of the visit. Result Diagram: 06/27/19 0533 06/27/19 0533 Results 24hrs Laboratory Tests Test 06/27/19 05:33 06/27/19 12:30 White Blood Count 6.0 Red Blood Count 2.97 L Hemoglobin 9.8 L Hematocrit 30.7 L Mean Corpuscular Volume 103.4 H Mean Corpuscular Hemoglobin 33.0 Mean Corpuscular Hemoglobin Concent 31.9 L Red Cell Distribution Width 12.5 Platelet Count 191 Mean Platelet Volume 8.8 Immature Granulocytes % 0.300 Neutrophils % 64.8 Lymphocytes % 23.9 Monocytes % 8.0 Eosinophils % 2.7 Basophils % 0.3 Nucleated Red Blood Cells % 0.0 Immature Granulocytes # 0.020 Neutrophils # 3.9 Lymphocytes # 1.4 Monocytes # 0.5 Eosinophils # 0.2 Basophils # 0.0 Nucleated Red Blood Cells # 0.0 Sodium Level 140 Potassium Level 4.7 Chloride Level 114 H Carbon Dioxide Level 18 L Anion Gap 8 Blood Urea Nitrogen 34 H Creatinine 1.32 H Est Glomerular Filtrat Rate mL/min Glucose Level 129 Calcium Level 9.2 Phosphorus Level 4.0 Magnesium Level 1.5 L Urine Color YELLOW Urine Clarity CLOUDY A Urine pH 5.0 Urine Specific [place] 1.011 Urine Ketones NEGATIVE Urine Nitrite NEGATIVE Urine Bilirubin NEGATIVE Urine Urobilinogen NEGATIVE Urine Leukocyte Esterase 2+ H Urine Microscopic RBC 8 H Urine Microscopic WBC > 182 H Urine Squamous Epithelial Cells FEW Urine Bacteria FEW A Urine Hemoglobin 1+ H Urine Random Creatinine 47.84 Urine Random Sodium 104 H Urine Glucose NEGATIVE Urine Total Protein 16.0 H Subjective 24 Hr Interval Summary Free Text/Dictation ongoing prep for colonoscopy Exam/Review of Systems Exam Vitals Vital Signs Date Temp Pulse Resp B/P (MAP) Pulse Ox O2 O2 Flow FiO2 Time Delivery Rate 06/27/19 98.0 72 22 127/69 96 Room Air 15:32 (88) Intake and Output 06/26/19 06/26/19 06/27/19 1515:00 23:00 07:00 IntakeIntake Total 770 ml BalanceBalance 770 ml Exam Constitutional: alert, oriented, elderly Head: atraumatic, normocephalic Neck: non-tender, supple Respiratory: clear to auscultation Cardiovascular: regular rate and rhythm Gastrointestinal: S/ NT / ND / +BS Extremities: no edema, good radial pulses Results Results 24hrs Laboratory Tests Test 06/27/19 05:33 06/27/19 12:30 White Blood Count 6.0 Red Blood Count 2.97 L Hemoglobin 9.8 L Hematocrit 30.7 L Mean Corpuscular Volume 103.4 H Mean Corpuscular Hemoglobin 33.0 Mean Corpuscular Hemoglobin Concent 31.9 L Red Cell Distribution Width 12.5 Platelet Count 191 Mean Platelet Volume 8.8 Immature Granulocytes % 0.300 Neutrophils % 64.8 Lymphocytes % 23.9 Monocytes % 8.0 Eosinophils % 2.7 Basophils % 0.3 Nucleated Red Blood Cells % 0.0 Immature Granulocytes # 0.020 Neutrophils # 3.9 Lymphocytes # 1.4 Monocytes # 0.5 Eosinophils # 0.2 Basophils # 0.0 Nucleated Red Blood Cells # 0.0 Sodium Level 140 Potassium Level 4.7 Chloride Level 114 H Carbon Dioxide Level 18 L Anion Gap 8 Blood Urea Nitrogen 34 H Creatinine 1.32 H Est Glomerular Filtrat Rate mL/min Glucose Level 129 Calcium Level 9.2 Phosphorus Level 4.0 Magnesium Level 1.5 L Urine Color YELLOW Urine Clarity CLOUDY A Urine pH 5.0 Urine Specific [place] 1.011 Urine Ketones NEGATIVE Urine Nitrite NEGATIVE Urine Bilirubin NEGATIVE Urine Urobilinogen NEGATIVE Urine Leukocyte Esterase 2+ H Urine Microscopic RBC 8 H Urine Microscopic WBC > 182 H Urine Squamous Epithelial Cells FEW Urine Bacteria FEW A Urine Hemoglobin 1+ H Urine Random Creatinine 47.84 Urine Random Sodium 104 H Urine Glucose NEGATIVE Urine Total Protein 16.0 H Medications Medication Current Medications Dextrose (D50w Syringe) ONCE PRN IV DECREASED GLUCOSE; Start 06/25/19 at 21:00 IV Flush (NS 3 ml) 3 ml PER PROTOCOL IV ; Start 06/26/19 at 00:30 Ondansetron HCl (Zofran Inj) 4 mg Q6H PRN IV NAUSEA/VOMITING; Start 06/26/19 at 00:30 Acetaminophen (Tylenol Tab) 650 mg Q6H PRN PO .PAIN 1-3 OR TEMP; Start 06/26/19 at 00:30 Pantoprazole (Protonix Tab) 40 mg BID@0600,1800 PO Last administered on 06/27/19at 17:35; Admin Dose 40 MG; Start 06/26/19 at 06:00 Albuterol/ Ipratropium (Duoneb) 3 ml Q2H RESP THERAPY PRN HHN SHORTNESS OF BREATH; Start 06/26/19 at 00:30 Piperacillin Sod/ Tazobactam Sod 100 ml @ 200 mls/hr Q6 IVPB Last administered on 06/27/19at 17:36; Admin Dose 200 MLS/HR; Start 06/26/19 at 12:00 Lactobacillus Acidophilus/ Rhamnosus (Culturelle) 1 cap BID PO Last administered on 06/27/19at 08:38; Admin Dose 1 CAP; Start 06/26/19 at 21:00 Polyethylene Glycol (Miralax) 119 gm 2ND DOSE (GI PREP) ONCE PO ; Start 06/28/19 at 06:00; Stop 06/28/19 at 06:01 Bisacodyl (Dulcolax) 10 mg 2ND DOSE (GI PREP) ONCE PO ; Start 06/28/19 at 08:00; Stop 06/28/19 at 08:01 JOSEFINA WEEMS Jun 27, 2019 18:50
[2019-06-27 20:00] VITALS: BP 135/61; PULSE 73; RESP 18
[2019-06-27] MEDS: ACETAMINOPHEN 325 MG TAB PO PRN (23:47)
[2019-06-28] VITALS: BP 131/76; PULSE 76; RESP 18
[2019-06-28] MEDS: PIPER-TAZO 3.375 GM IV (PMX) 100 ML IVPB SCH ×4 (00:20→17:25)
[2019-06-28 04:00] VITALS: BP 146/68; PULSE 67; RESP 18
[2019-06-28] MEDS: PANTOPRAZOLE (EC) 40 MG TAB PO SCH ×2 (06:00→17:25)
[2019-06-28] MEDS ORDERED: POLYETHYLENE GLYCOL 3350 119 GM POWDER PO ONE (06:00)
[2019-06-28 07:32] VITALS: BP 134/68; PULSE 68; RESP 18
--- NOTE | 2019-06-28 07:42 | PN ---
Date/Time of Note Date/Time of Note DATE: 06/28/19 TIME: 07:38 Assessment/Plan VTE Prophylaxis [place] [facility] [place] risk: 2 SCD applied [place] [facility] [place] Yes Pharmacological prophylaxis: NA/contraindicated Pharm contraindication: bleeding Lines/Catheters IV Catheter Type (from [facility]): Saline Lock Urinary Cath still in place: No Assessment/Plan Hospital Course s: no new issues, colonoscopy today, ongoing prep O: Constitutional: alert, oriented, elderly Head: atraumatic, normocephalic Neck: non-tender, supple Respiratory: clear to auscultation Cardiovascular: regular rate and rhythm Gastrointestinal: S/ NT / ND / +BS Extremities: no edema, good radial pulses assessment and plan : 74-year-old female with a history of hypertension, type 2 diabetes, dyslipidemia, breast cancer status post lumpectomy, pulmonary embolism who presented to the ER complaining of rectal bleeding and diarrhea. 1. Rectal bleeding - - no more bleeding - Last colonoscopy 6 years ago, per patient, it showed 2 polyps (benign) - colonoscopy today 2. Diarrhea: now with multiple loose stools from prep, continue empiric abx 3. Scattered pulmonary nodules: -Patient with a history of breast carcinoma status post lumpectomy. Patient never had a chemoradiation. Patient has never been told about pulmonary nodule - dedicated chest CT : Small bilateral pulmonary nodules. Correlation with CT scan of the chest is 6-12 months is advised. 4. Acute renal insufficiency with metabolic acidosis and hyperkalemia r/o CKD : Nephro managing, Cr seems to be at baseline, tren labs, avoid nephrotoxic drugs 5. Breast cancer, status post lumpectomy 2 years ago: No chemo/radiation / Per patient, in remission 6. Dyslipidemia: Continue statin 7. History of pulmonary embolism 8. Left ankle pain/swelling : recent mechanical fall / X-ray shows soft tissue swelling with ligamentous and tendinous injury not been able to be excluded / ankle CT to r/o occult fracture done, report pending 9. Hypertension: Adjust BP meds as needed 10. Type 2 diabetes: hold metformin for acidosis and renal failure : ssi and basal insulin for now 11. Nitrite + UTI: cultures non conclusive / empiric abx 12. Hypomagnesemia: repleted Disclaimer: Inadvertent spelling and grammatical errors as well as erroneous comments are likely due to EHR/dictation software use and do not reflect on the quality of delivered patient care. They will be resolved as soon as possible once noted. Also, please note that the electronic time recorded on this node does not necessarily reflect the actual time of the visit. Result Diagram: 06/27/19 0533 06/28/19 0529 Results 24hrs Laboratory Tests Test 06/27/19 12:30 06/28/19 05:29 Urine Color YELLOW Urine Clarity CLOUDY A Urine pH 5.0 Urine Specific [place] 1.011 Urine Ketones NEGATIVE Urine Nitrite NEGATIVE Urine Bilirubin NEGATIVE Urine Urobilinogen NEGATIVE Urine Leukocyte Esterase 2+ H Urine Microscopic RBC 8 H Urine Microscopic WBC > 182 H Urine Squamous Epithelial Cells FEW Urine Bacteria FEW A Urine Hemoglobin 1+ H Urine Random Creatinine 47.84 Urine Random Sodium 104 H Urine Glucose NEGATIVE Urine Total Protein 16.0 H Sodium Level 142 Potassium Level 4.1 Chloride Level 114 H Carbon Dioxide Level 20 L Anion Gap 8 Blood Urea Nitrogen 22 #H Creatinine 1.18 H Est Glomerular Filtrat Rate mL/min Glucose Level 130 Calcium Level 9.5 Phosphorus Level 3.8 Magnesium Level 2.3 Exam/Review of Systems Exam Vitals Vital Signs Date Temp Pulse Resp B/P (MAP) Pulse Ox O2 O2 Flow FiO2 Time Delivery Rate 06/28/19 98.3 68 18 134/68 97 07:32 (90) 06/27/19 Room Air 15:32 Intake and Output 06/27/19 06/27/19 06/28/19 1515:00 23:00 07:00 IntakeIntake Total 200 ml 980 ml OutputOutput Total 300 ml BalanceBalance 200 ml 680 ml Results Results 24hrs Laboratory Tests Test 06/27/19 12:30 06/28/19 05:29 Urine Color YELLOW Urine Clarity CLOUDY A Urine pH 5.0 Urine Specific [place] 1.011 Urine Ketones NEGATIVE Urine Nitrite NEGATIVE Urine Bilirubin NEGATIVE Urine Urobilinogen NEGATIVE Urine Leukocyte Esterase 2+ H Urine Microscopic RBC 8 H Urine Microscopic WBC > 182 H Urine Squamous Epithelial Cells FEW Urine Bacteria FEW A Urine Hemoglobin 1+ H Urine Random Creatinine 47.84 Urine Random Sodium 104 H Urine Glucose NEGATIVE Urine Total Protein 16.0 H Sodium Level 142 Potassium Level 4.1 Chloride Level 114 H Carbon Dioxide Level 20 L Anion Gap 8 Blood Urea Nitrogen 22 #H Creatinine 1.18 H Est Glomerular Filtrat Rate mL/min Glucose Level 130 Calcium Level 9.5 Phosphorus Level 3.8 Magnesium Level 2.3 Medications Medication Current Medications Dextrose (D50w Syringe) ONCE PRN IV DECREASED GLUCOSE; Start 06/25/19 at 21:00 IV Flush (NS 3 ml) 3 ml PER PROTOCOL IV ; Start 06/26/19 at 00:30 Ondansetron HCl (Zofran Inj) 4 mg Q6H PRN IV NAUSEA/VOMITING; Start 06/26/19 at 00:30 Acetaminophen (Tylenol Tab) 650 mg Q6H PRN PO .PAIN 1-3 OR TEMP Last administered on 06/27/19at 23:47; Admin Dose 650 MG; Start 06/26/19 at 00:30 Pantoprazole (Protonix Tab) 40 mg BID@0600,1800 PO Last administered on 06/27/19at 17:35; Admin Dose 40 MG; Start 06/26/19 at 06:00 Albuterol/ Ipratropium (Duoneb) 3 ml Q2H RESP THERAPY PRN HHN SHORTNESS OF BREATH; Start 06/26/19 at 00:30 Piperacillin Sod/ Tazobactam Sod 100 ml @ 200 mls/hr Q6 IVPB Last administered on 06/28/19at 06:56; Admin Dose 200 MLS/HR; Start 06/26/19 at 12:00 Lactobacillus Acidophilus/ Rhamnosus (Culturelle) 1 cap BID PO Last administered on 06/27/19at 21:14; Admin Dose 1 CAP; Start 06/26/19 at 21:00 Bisacodyl (Dulcolax) 10 mg 2ND DOSE (GI PREP) ONCE PO ; Start 06/28/19 at 08:00; Stop 06/28/19 at 08:01 JOSEFINA WEEMS Jun 28, 2019 07:42
[2019-06-28] MEDS ORDERED: BISACODYL (EC) 5 MG TAB PO ONE (08:00)
--- NOTE | 2019-06-28 08:00 | PN ---
DATE: 06/28/2019 SUBJECTIVE: The patient is stable. No events overnight. The patient is pending colonoscopy. OBJECTIVE: VITAL SIGNS: Blood pressure is 146/68, pulse 76, respirations 22, temperature 98.0. HEENT: Head is normocephalic. NECK: Supple. HEART: Regular rate. LUNGS: Show diminished breath sounds at the base. ABDOMEN: Soft, nontender to palpation. No rebound or guarding. EXTREMITIES: Negative for clubbing, cyanosis, no edema. DERMATOLOGIC: No rashes. MUSCULOSKELETAL: No joint effusion. NEUROLOGIC: No change in exam. MEDICATIONS: Have been reviewed. LABORATORY DATA: Reviewed. IMAGING STUDIES: Have been reviewed. ASSESSMENT AND PLAN: 1. Nonoliguric acute kidney injury on top of chronic kidney disease with unknown baseline creatinine . Etiology of acute kidney injury is secondary to hemodynamics. Renal function appears to be stabil ized around a creatinine of 1.2 to 1.4 mg/dL. At this point, continue current treatment plan, suppor tive care, renally dose all meds. 2. Hypokalemia. Etiology is secondary to acute kidney injury, Aldactone and ARB effect. The patien t's potassium levels have normalized. Continue to monitor. Continue low-potassium diet. 3. Chronic kidney disease. Etiology is like secondary to hypertension and diabetes. At this point, continue treating acute injury as stated above. We will hold HAYDEE inhibitor and ARB at this time. 4. Metabolic acidosis secondary to acute kidney injury. Continue to monitor. 5. Hypomagnesemia. Monitor and replete as needed. 6. Anemia. Monitor hemoglobin and hematocrit levels. 7. Mineral bone disorder. Monitor calcium and phosphorus levels. 8. Rectal bleeding. The patient is pending a colonoscopy. 9. Diarrhea. Continue current treatment plan. 10. Pulmonary nodules. The patient is pending high resolution CT. Follow up with pulmonary. 11. History of breast cancer status post lumpectomy. 12. History of pulmonary embolism. 13. History of hypertension. Continue current blood pressure regimen. 14. Diabetes. Continue current insulin regimen. 15. Urinary tract infection. Continue antibiotic regimen. Dictated By: JANAE SERRATO DO NR/NTS Conf#: [id number] DID#: [id number] CC: TATE CORREIA MD;*EndCC*
[2019-06-28] MEDS: LACTOBACILLUS RHAMNOSUS CAP PO SCH ×2 (08:45→21:17)
[2019-06-28 14:10] VITALS: BP 151/78; PULSE 94; RESP 20
--- NOTE | 2019-06-28 14:58 | PREAC ---
Date/Time of Note Date/Time of Note DATE: 06/28/19 TIME: 14:56 Anesthesia Eval and Record Evaluation Time Pre-Procedure Interview DATE: 06/28/19 TIME: 14:56 Age 74 Sex female NPO: 8 hrs Preoperative diagnosis rectal bleeding Planned procedure colonoscopy Past Medical History Past Medical History: Includes Cardio: HTN, Dyslipidemia Endo: Diabetes Musculoskeletal: Other (Breast cancer ) Heme: Coagulation disorder, Other (PE DVT) Surgery & Anesthesia Issues No known issue Meds Anticoagulation: No Beta Miguelina within 24 hr: No Reason Beta Miguelina not given: Pt. not on B-Miguelina Reported Medications Phenazopyridine Hcl* (Pyridium*) 200 Mg Tab, 200 MG PO TID PRN for PAIN, TAB 06/26/19 Carvedilol* (Carvedilol*) 25 Mg Tablet, 25 MG PO DAILY for 90 Days 06/26/19 Spironolactone* (Aldactone*) 25 Mg Tablet, 25 MG PO DAILY for 90 Days 06/26/19 Irbesartan* (Irbesartan*) 300 Mg Tablet, 300 MG PO DAILY for 90 Days, #90 06/26/19 Atorvastatin Calcium (Atorvastatin Calcium) 20 Mg Tablet, 20 MG PO DAILY for 90 Days, #90 TAB 06/26/19 Metformin* (Glucophage*) 500 Mg Tab, 500 MG PO QPM for 90 Days 06/26/19 Current Medications Dextrose (D50w Syringe) ONCE PRN IV DECREASED GLUCOSE; Start 06/25/19 at 21:00 IV Flush (NS 3 ml) 3 ml PER PROTOCOL IV ; Start 06/26/19 at 00:30 Ondansetron HCl (Zofran Inj) 4 mg Q6H PRN IV NAUSEA/VOMITING; Start 06/26/19 at 00:30 Acetaminophen (Tylenol Tab) 650 mg Q6H PRN PO .PAIN 1-3 OR TEMP Last administered on 06/27/19at 23:47; Admin Dose 650 MG; Start 06/26/19 at 00:30 Pantoprazole (Protonix Tab) 40 mg BID@0600,1800 PO Last administered on 06/27/19at 17:35; Admin Dose 40 MG; Start 06/26/19 at 06:00 Albuterol/ Ipratropium (Duoneb) 3 ml Q2H RESP THERAPY PRN HHN SHORTNESS OF BREATH; Start 06/26/19 at 00:30 Piperacillin Sod/ Tazobactam Sod 100 ml @ 200 mls/hr Q6 IVPB Last administered on 06/28/19at 12:06; Admin Dose 200 MLS/HR; Start 06/26/19 at 12:00 Lactobacillus Acidophilus/ Rhamnosus (Culturelle) 1 cap BID PO Last administered on 06/28/19at 08:45; Admin Dose 1 CAP; Start 06/26/19 at 21:00 Meds reviewed: Yes Allergies Coded Allergies: Estrogens (Unverified Allergy, Unknown, 06/25/19) Allergies Reviewed: Yes Labs/Studies Labs Reviewed: Reviewed by anesthesiologist Result Diagram: 06/27/19 0533 06/28/19 0529 Laboratory Tests 06/28/19 05:29 test: N/A Pre-procedure Exam Last vitals Vital Signs Date Temp Pulse Resp B/P (MAP) Pulse Ox O2 O2 Flow FiO2 Time Delivery Rate 06/28/19 98.0 94 20 151/78 94 Room Air 14:10 (102) Airway: Adequate mouth opening, Adequate thyromental dist Mallampati: Mallampati III Teeth: Normal Lung: Normal Heart: Normal ASA Physical Status ASA physical status: 3 Emergency: None Pre-operative Attestations Prior to commencing anesthesia and surgery, the patient was re-evaluated, there was verification of: *The patient's identity *The results of appropriate recent lab work and preoperative vital signs *The above evaluation not changing prior to induction *Anesthetic plan, risk benefits, alternative and complications discussed with patient/family; questions answered; patient/family understands, accepts and wishes to proceed. LEONOR PRIEST DO Jun 28, 2019 14:58
[2019-06-28] MEDS ORDERED: PROPOFOL 20 ML ONE (14:59)
[2019-06-28] MEDS ORDERED: LIDOCAINE 2% (SDV) 5 ML INJ ONE (14:59)
--- NOTE | 2019-06-28 15:34 | PAC ---
Date/Time of Note Date/Time of Note DATE: 06/28/19 TIME: 15:33 Post-Anesthesia Notes Post-Anesthesia Note Last documented vital signs Vital Signs Date Temp Pulse Resp B/P (MAP) Pulse Ox O2 O2 Flow FiO2 Time Delivery Rate 06/28/19 98 65 20 125-64 100 Room Air 1533 Activity: WNL Respiratory function: WNL Cardiovascular function: WNL Mental status: Baseline Pain reasonably controlled: Yes Hydration appropriate: Yes Nausea/Vomiting absent: Yes LEONOR PRIEST DO Jun 28, 2019 15:34
[2019-06-28 20:00] VITALS: BP 158/74; PULSE 72; RESP 18
[2019-06-28 23:30] VITALS: BP 136/72; PULSE 75; RESP 17
[2019-06-29] MEDS: PIPER-TAZO 3.375 GM IV (PMX) 100 ML IVPB SCH ×4 (00:31→18:12)
[2019-06-29] MEDS: NACL 0.9% 3 ML SYG IV SCH ×3 (00:31→23:48)
[2019-06-29] MEDS: PANTOPRAZOLE (EC) 40 MG TAB PO SCH (06:22)
[2019-06-29 07:51] VITALS: BP 136/73; PULSE 65; RESP 18
--- NOTE | 2019-06-29 09:02 | PN ---
DATE: 06/29/2019 SUBJECTIVE: The patient is stable. No events overnight. OBJECTIVE: VITAL SIGNS: Blood pressure is 136/73, respiration 18, pulse 65, temperature 98.3. HEENT: Head is normocephalic. NECK: Supple. HEART: Regular rate. LUNGS: Show diminished breath sounds at the base. ABDOMEN: Soft, nontender to palpation without rebound or guarding. EXTREMITIES: Negative for clubbing, cyanosis, no edema. DERMATOLOGIC: No rashes. MUSCULOSKELETAL: No joint effusion. NEUROLOGIC: No change in exam. MEDICATIONS: Reviewed. LABORATORY DATA: Has been reviewed. IMAGING STUDIES: Have been reviewed. ASSESSMENT AND PLAN: 1. Nonoliguric acute kidney injury on top of CKD with unknown baseline creatinine. Etiology of acut e kidney injury is secondary to hemodynamics. Renal function has stabilized around a creatinine of 1 .2 to 1.4 mg/dL. At this point, continue current treatment plan, supportive care, renally dose all m eds. 2. Hyperkalemia. Etiology is multifactorial secondary to acute kidney injury, Aldactone effect, ARB effect, resolved. Continue to monitor. 3. Chronic kidney disease secondary to hypertension, diabetes. The patient is currently in acute in [facility] as stated above. Continue current disease factor modification. Continue current treatment plan . 4. Metabolic acidosis secondary to acute kidney injury. Continue to monitor. 5. Hypomagnesemia. Continue to monitor and replete. 6. Anemia. Monitor hemoglobin and hematocrit levels. 7. Mineral bone disorder. Monitor calcium and phosphorus levels. 8. Rectal bleed. The patient is status post colonoscopy, results pending. 9. Diarrhea. Continue current treatment plan. 10. Pulmonary nodules. Continue to monitor. 11. History of breast cancer, status post lumpectomy. 12. History of pulmonary embolism. 13. History of hypertension. 14. Diabetes. Continue current insulin regimen. 15. Urinary tract infection. Continue current antibiotic regimen. Dictated By: JANAE WINN/LUKASZ Conf#: [id number] DID#: [id number] CC: TATE CORREIA MD;*EndCC*
[2019-06-29] MEDS: LACTOBACILLUS RHAMNOSUS CAP PO SCH ×2 (09:54→21:58)
[2019-06-29] MEDS: ACETAMINOPHEN 325 MG TAB PO PRN (12:13)
--- NOTE | 2019-06-29 12:27 | PN ---
Date/Time of Note Date/Time of Note DATE: 06/29/19 TIME: 12:27 Objective Vitals Vital Signs Date Temp Pulse Resp B/P (MAP) Pulse Ox O2 O2 Flow FiO2 Time Delivery Rate 06/29/19 98.3 65 18 136/73 99 Room Air 07:51 (94) Intake and Output 06/28/19 06/28/19 06/29/19 1515:00 23:00 07:00 IntakeIntake Total 680 ml BalanceBalance 680 ml Results Result Diagram: 06/29/19 0440 06/29/19 0440 Medications Medications Current Medications Dextrose (D50w Syringe) ONCE PRN IV DECREASED GLUCOSE; Start 06/25/19 at 21:00 IV Flush (NS 3 ml) 3 ml PER PROTOCOL IV Last administered on 06/29/19at 06:22; Admin Dose 3 ML; Start 06/26/19 at 00:30 Ondansetron HCl (Zofran Inj) 4 mg Q6H PRN IV NAUSEA/VOMITING; Start 06/26/19 at 00:30 Acetaminophen (Tylenol Tab) 650 mg Q6H PRN PO .PAIN 1-3 OR TEMP Last administered on 06/29/19at 12:13; Admin Dose 650 MG; Start 06/26/19 at 00:30 Pantoprazole (Protonix Tab) 40 mg BID@0600,1800 PO Last administered on 06/29/19at 06:22; Admin Dose 40 MG; Start 06/26/19 at 06:00 Albuterol/ Ipratropium (Duoneb) 3 ml Q2H RESP THERAPY PRN HHN SHORTNESS OF BREATH; Start 06/26/19 at 00:30 Piperacillin Sod/ Tazobactam Sod 100 ml @ 200 mls/hr Q6 IVPB Last administered on 06/29/19at 12:13; Admin Dose 200 MLS/HR; Start 06/26/19 at 12:00 Lactobacillus Acidophilus/ Rhamnosus (Culturelle) 1 cap BID PO Last administered on 06/29/19at 09:54; Admin Dose 1 CAP; Start 06/26/19 at 21:00 VTE Prophylaxis Risk score (from Nsg)>0 risk: 4 SCD applied (from Nsg): No SCD contraindication: other Lines/Catheters IV Catheter Type: Hernandez in Place: No Assessment/Plan Hospital Course Subjective Patient foot pain has nearly resolved, diarrhea has improved and no rectal bleeding Objective Physical exam General: Patient is laying in bed and answers questions appropriately Mentation: Patient is alert and oriented 4, Head: Normocephalic atraumatic Eyes: EOMI, pupils reactive to light Neck: Supple, nontender, midline Respiratory: Clear to auscultation bilaterally Cardiovascular: regular rate, no obvious murmurs Gastrointestinal: non-tender to palpation, bowel sounds heard. Neurological: Moves all extremities spontaneously Skin: No new skin lesions Assessment and plan Rectal bleeding -Status post colonoscopy, no clear signs of rectal bleeding cause except for large hemorrhoids which GI recommends elective outpatient surgical correction. -Monitor closely Diarrhea -Ongoing for approximately 1 year, currently stable, patient will need to follow-up with lotteries agent in the outpatient setting Scattered pulmonary nodules -CT chest done, patient knows to follow-up with repeat CT chest in 6 to 12 months. -Patient knows the importance of this as she does have a history of breast carcinoma status post lumpectomy Recurrent urinary tract infection -On broad-spectrum antibiotic -Infectious disease consulted -Patient has been having on and off UTIs and UTI symptoms for many months now Acute kidney injury -Nephrology on board Left ankle pain -Nearly resolved, however CT showing signs of possible fracture, orthopedic surgeon consulted to review CT History of breast cancer -Status post lobectomy 2 years ago, in remission Dyslipidemia -Continue home meds History of pulmonary embolism -Monitor Hypertension -Continue home meds and adjust as needed Diabetes mellitus -Insulin while in house Electrolyte derangement -Replete as needed Disposition -Follow-up with orthopedic surgeon and infectious disease recommendations, continue physical therapy, plan is to discharge patient home with home health physical therapy a front wheel walker in 1 to 2 days. CLARIBEL HASTINGS Jun 29, 2019 12:27
--- NOTE | 2019-06-29 13:50 | CONS ---
DATE OF ADMISSION: 06/25/2019 DATE OF CONSULTATION: 06/29/2019 TYPE OF CONSULTATION: Infectious disease. REASON FOR CONSULTATION: Antibiotic management. HISTORY OF PRESENT ILLNESS: Patient actually was admitted on 06/25/2019. She is a 74-year-old femal e sent in by her doctor, Dr. Vallejo, for rectal bleeding which she has had intermittently for the pas t 3 months with associated diarrhea. She complains of chronic dysuria and frequency, but does not baldwin ve a urinary tract infection. She also complains of rectal pain, feels like she has hemorrhoids. La st colonoscopy was about 6 years ago during which time, she was diagnosed with polyps, but no other a bnormalities were found. She denies dizziness, shortness of breath, chest pain. She complains of damon prapubic pain which is chronic, aching, nonradiating. She also fell last week in the bathroom. She twisted her ankle and complains of left lateral ankle pain, but is able to ambulate. PAST SURGICAL HISTORY: She had a lumpectomy. PAST MEDICAL HISTORY: She has a history of hypertension, hyperlipidemia, breast cancer, diabetes. FAMILY HISTORY: Positive for diabetes. SOCIAL HISTORY: She does not smoke, drink or abuse drugs. ALLERGIES: ESTROGENS. MEDICATIONS: Per chart. REVIEW OF SYSTEMS: As per HPI. ANCILLARY LABORATORY DATA: On admission, her vital signs were stable. Her white count was 6.2, H an d H of 9.5 and 29.9, platelet count 191,000. BUN and creatinine 23/1.16, glucose of 168. She had 70 % neutrophils. The patient is currently on insulin. A CT scan of the abdomen and pelvis showed thic k-walled urinary bladder with edema and surrounding fat concerning for cystitis. Recommend correlati on with urinalysis, mild colonic diverticulosis without diverticulitis. The cecum is mesentery and is situated in the left upper quadrant of the abdomen and could predispose to volvulus. There i s no evidence for volvulus presently or complications at this time. Appendix not visualized. She baldwin s scattered pulmonary nodules in the right lower lobe measuring up to 0.4 cm in the absence of risk f actors of known primary neoplasm. No further imaging is required. In high risk patients, follow up low dose chest CT at 12 months is optional. Alternatively recommend correlation with previous imagin g. The patient was felt to have some chronic GI bleeding, hyperkalemia. She had some degree of acut e renal failure as noted, her BUN and creatinine 23/1.16, however her potassium was 3.9, so nothing q uite remarkable. HOSPITAL COURSE: Urine showed mixed gram-positive organisms. She had a CT scan of the chest which s howed small bilateral pulmonary nodules. Correlation with CT scan of the chest in 6 to 12 is advised . Prior to that, breast surgery and left axillary surgery, atherosclerosis, coronary artery calcific ations, DJD in the spine. A lower extremity CT was done on 06/28/2019 which showed several small cys tic bodies at the lateral aspect of the ankle stated to be chronic and sequelae of old injury. She c ould have an acute avulsion fracture, if there is a history of acute injury and tenderness adjacent t o the anterior talus. Polyarticular DJD, mild to moderate calcaneal spurring. Patient was seen by lAex Kraus in follow up in renal consultation Nonoliguric acute kidney injury on top of chronic renal disease, multifactorial secondary to hemodynamic and HAYDEE inhibitor effect. Continue supportive care . Defer any HAYDEE inhibitors or ARBs at this time. Patient had colonoscopy with and without brushings on 06/28/2019. Currently, she has no acute changes. PHYSICAL EXAMINATION: VITAL SIGNS: Stable. SKIN: Without generalized rash. HEENT: Within normal limits. NECK: Supple. LYMPH NODES: None palpable. CHEST: Decreased breath sounds at the bases. HEART: Without murmur or gallop. ABDOMEN: Soft, nontender, without organosplenomegaly or masses. EXTREMITIES: Without cyanosis, clubbing, or edema. RECTAL AND GENITAL: Deferred. NEUROLOGIC: No focal neurological abnormalities. Her urine on 06/27/2019 showed 2+ leukocyte esterase and greater than 182 white cells per high powere d field. It certainly goes along with urinary tract infection. She was started on Zosyn on the and I concur with that. A C. difficile toxin has also been ordered and feces cultures. Her urine, a s noted from 06/25/2019 showed gram-positive organisms mixed and her white count today is 6.2. At th is point, will continue her on Zosyn since she has a urinary tract infection and repeat a urine cultu re. I will dictate my findings to the hospitalist, Dr. Kraus. Dictated By: WAQAS HERNANDEZ MD, JD/LUKASZ Conf#: [id number] DID#: [id number] CC: TATE CORREIA MD;*EndCC*
[2019-06-29 15:15] VITALS: BP 145/61; PULSE 59; RESP 18
--- NOTE | 2019-06-29 17:24 | PN ---
Date/Time of Note Date/Time of Note DATE: 06/29/19 TIME: 17:01 Assessment/Plan VTE Prophylaxis Risk score (from Ns)>0 risk: 4 SCD applied (from Ns): No SCD contraindicated: low risk/ambulating Pharmacological prophylaxis: NA/contraindicated Pharm contraindication: low risk/ambulating Lines/Catheters IV [facility]from [facility] Urinary Cath still in place: No Assessment/Plan Assessment/Plan Assessment: Hematochezia, likely secondary to hemorrhoids S/p colonoscopy 06/28/19 - large external and moderate internal hemorrhoids -otherwise normal colonoscopy Diarrhea x1 year Scattered pulmonary nodules - CT chest with Small bilateral pulmonary nodules. CT scan of the chest is 6- 12 months is advised. KANDI Breast cancer -Status post lumpectomy 2 years ago, No chemo/radiation -Per patient, in remission Dyslipidemia Hx of pulmonary embolism Hypertension Diabetes mellitus, type II Plan: Regular diet D/c protonix as this may cause diarrhea Stool studies pending Continue to monitor H/H Patient seen in collaboration with Dr. Montejo Subjective: Patient denies nausea, vomiting, further diarrhea or rectal bleeding after colonoscopy. She states she feels "relieved" after the procedure. Discussed the results of colonoscopy and management of hemorrhoids including diet and lifestyle changes. Continue current regimen. PHYSICAL EXAMINATION: GENERAL: Alert & oriented x 3, in no acute distress SKIN: No lesions. HEAD: Normocephalic, atraumatic, no tenderness. EYES: Pupils equal reactive to light and accommodation, no discharge. EARS/NOSE AND THROAT: Ears normal, nose normal. NECK: Supple, no masses CHEST: Inspection within normal limits. CARDIOVASCULAR: Heart: Regular rate and rhythm. RESPIRATORY: Lungs clear to auscultation and percussion, no wheezing, no rubs GASTROINTESTINAL AND LIVER: Abdomen: Soft, non tenderness, non-distended, no hernias, normoactive bowel sounds. Rectal: Deferred. EXTREMITIES: No cyanosis, clubbing or edema. Result Diagram: 06/29/1943906/29/19439 Results 24hrs Laboratory Tests Test 06/29/19 04:40 White Blood Count 6.2 Red Blood Count 2.93 L Hemoglobin 9.5 L Hematocrit 29.9 L Mean Corpuscular Volume 102.0 H Mean Corpuscular Hemoglobin 32.4 Mean Corpuscular Hemoglobin Concent 31.8 L Red Cell Distribution Width 12.2 Platelet Count 191 Mean Platelet Volume 8.8 Immature Granulocytes % 0.500 H Neutrophils % 59.6 Lymphocytes % 27.9 Monocytes % 8.6 Eosinophils % 3.1 Basophils % 0.3 Nucleated Red Blood Cells % 0.0 Immature Granulocytes # 0.030 Neutrophils # 3.7 Lymphocytes # 1.7 Monocytes # 0.5 Eosinophils # 0.2 Basophils # 0.0 Nucleated Red Blood Cells # 0.0 Sodium Level 139 Potassium Level 3.9 Chloride Level 113 H Carbon Dioxide Level 18 L Anion Gap 8 Blood Urea Nitrogen 23 H Creatinine 1.16 H Est Glomerular Filtrat Rate mL/min Glucose Level 168 Calcium Level 9.0 Phosphorus Level 3.1 Magnesium Level 2.1 CC: SEGUNDO MONTEJO MD ; Exam/Review of Systems Exam Vitals Vital Signs Date Temp Pulse Resp B/P (MAP) Pulse Ox O2 O2 Flow FiO2 Time Delivery Rate 06/29/19 98.3 59 18 145/61 99 Room Air 15:15 (89) Intake and Output 06/28/19 06/28/19 06/29/19 1515:00 23:00 07:00 IntakeIntake Total 680 ml BalanceBalance 680 ml Results Results 24hrs Laboratory Tests Test 06/29/19 04:40 White Blood Count 6.2 Red Blood Count 2.93 L Hemoglobin 9.5 L Hematocrit 29.9 L Mean Corpuscular Volume 102.0 H Mean Corpuscular Hemoglobin 32.4 Mean Corpuscular Hemoglobin Concent 31.8 L Red Cell Distribution Width 12.2 Platelet Count 191 Mean Platelet Volume 8.8 Immature Granulocytes % 0.500 H Neutrophils % 59.6 Lymphocytes % 27.9 Monocytes % 8.6 Eosinophils % 3.1 Basophils % 0.3 Nucleated Red Blood Cells % 0.0 Immature Granulocytes # 0.030 Neutrophils # 3.7 Lymphocytes # 1.7 Monocytes # 0.5 Eosinophils # 0.2 Basophils # 0.0 Nucleated Red Blood Cells # 0.0 Sodium Level 139 Potassium Level 3.9 Chloride Level 113 H Carbon Dioxide Level 18 L Anion Gap 8 Blood Urea Nitrogen 23 H Creatinine 1.16 H Est Glomerular Filtrat Rate mL/min Glucose Level 168 Calcium Level 9.0 Phosphorus Level 3.1 Magnesium Level 2.1 Medications Medication Current Medications Dextrose (D50w Syringe) ONCE PRN IV DECREASED GLUCOSE; Start 06/25/19 at 21:00 IV Flush (NS 3 ml) 3 ml PER PROTOCOL IV Last administered on 06/29/19 06:22; Admin Dose 3 ML; Start 06/26/19 at 00:30 Ondansetron HCl (Zofran Inj) 4 mg Q6H PRN IV NAUSEA/VOMITING; Start 06/26/19 at 00:30 Acetaminophen (Tylenol Tab) 650 mg Q6H PRN PO .PAIN 1-3 OR TEMP Last administered on 06/29/19 12:13; Admin Dose 650 MG; Start 06/26/19 at 00:30 Pantoprazole (Protonix Tab) 40 mg BID@0600,1800 PO Last administered on 06/29/19 06:22; Admin Dose 40 MG; Start 06/26/19 at 06:00 Albuterol/ Ipratropium (Duoneb) 3 ml Q2H RESP THERAPY PRN HHN SHORTNESS OF BREATH; Start 06/26/19 at 00:30 Piperacillin Sod/ Tazobactam Sod 100 ml @ 200 mls/hr Q6 IVPB Last administered on 06/29/19at 12:13; Admin Dose 200 MLS/HR; Start 06/26/19 at 12:00 Lactobacillus Acidophilus/ Rhamnosus (Culturelle) 1 cap BID PO Last administered on 06/29/19 09:54; Admin Dose 1 CAP; Start 06/26/19 at 21:00 Phenazopyridine HCl (Pyridium) 200 mg TID PO ; Start 06/29/19 at 21:00; Stop 07/01/19 at 20:59 GISELE VEGA NP Jun 29, 2019 17:19
[2019-06-29 21:03] VITALS: BP 174/72; PULSE 63; RESP 20
[2019-06-29 21:30] VITALS: BP 132/68; PULSE 62
[2019-06-29] MEDS: PHENAZOPYRIDINE 200 MG TAB PO SCH (21:58)
[2019-06-30] VITALS (7 sets, daily range): BP systolic 133–167; BP diastolic 68–74; PULSE 65–77; RESP 14–20
[2019-06-30] MEDS: PIPER-TAZO 3.375 GM IV (PMX) 100 ML IVPB SCH ×5 (01:23→23:27)
[2019-06-30] MEDS: ACETAMINOPHEN 325 MG TAB PO PRN ×3 (03:48→17:35)
--- NOTE | 2019-06-30 07:53 | PN ---
DATE: 06/30/2019 SUBJECTIVE: The patient is stable, no events overnight. No fevers, chills, nausea, vomiting. The p atient continued to have symptoms of dysuria. OBJECTIVE: VITAL SIGNS: Blood pressure is 164/74, respirations 20, pulse 69, temperature 98.6. HEENT: Head is normocephalic. NECK: Supple. HEART: Regular rate. LUNGS: Show diminished breath sounds at the base. ABDOMEN: Soft, nontender to palpation without rebound or guarding. EXTREMITIES: Negative for clubbing, cyanosis, no edema. DERMATOLOGIC: No rashes. MUSCULOSKELETAL: No joint effusion. NEUROLOGIC: No change in exam. MEDICATIONS: The patient's medications have been reviewed. LABORATORY DATA: Has been reviewed. IMAGING STUDIES: Have been reviewed. ASSESSMENT AND PLAN: 1. Nonoliguric acute kidney injury on top of chronic kidney disease with unknown baseline creatinine . Etiology of KANDI is secondary to hemodynamics. Renal function has slowly been improving. Continue current treatment plan and supportive care and renally dose all meds. 2. Hyperkalemia. Etiology is multifactorial secondary to ARB effect, Aldactone effect, resolved. 3. Chronic kidney disease secondary to hypertension, diabetes. Continue to treat acute kidney injury as stated above. Continue disease factor modification. 4. Metabolic acidosis, improving. 5. Hypomagnesemia. Continue to monitor and replete as needed. 6. Anemia. Monitor hemoglobin and hematocrit levels. 7. Mineral bone disorder, monitor calcium and phosphorus levels. 8. Rectal bleed status post colonoscopy with evidence of hemorrhoids. Continue to monitor. 9. Urinary tract infection. Continue antibiotic regimen. 10. History of breast cancer status post lumpectomy. 11. History of pulmonary embolism. 12. History of hypertension. 13. Diabetes. 14. Pulmonary nodules. Continue to monitor. Workup per primary team. Dictated By: JANAE SERRATO DO NR/NTS Conf#: [id number] DID#: [id number] CC: TATE CORREIA MD; CLARIBEL HASTINGS MD;*EndCC*
[2019-06-30] MEDS: LACTOBACILLUS RHAMNOSUS CAP PO SCH ×2 (08:42→21:01)
[2019-06-30] MEDS: PHENAZOPYRIDINE 200 MG TAB PO SCH ×3 (08:42→21:01)
[2019-06-30] MEDS ORDERED: traMADol 50 MG TAB PO PRN (09:00)
--- NOTE | 2019-06-30 11:10 | PN ---
Date/Time of Note Date/Time of Note DATE: 06/30/19 TIME: 11:09 Objective Vitals Vital Signs Date Temp Pulse Resp B/P (MAP) Pulse Ox O2 O2 Flow FiO2 Time Delivery Rate 06/30/19 98.3 66 15 155/70 98 Room Air 07:22 (98) Intake and Output 06/29/19 06/29/19 06/30/19 1515:00 23:00 07:00 IntakeIntake Total 340 ml 2120 ml 580 ml BalanceBalance 340 ml 2120 ml 580 ml Results Result Diagram: 06/30/19 0434 06/30/19 0434 Medications Medications Current Medications Dextrose (D50w Syringe) ONCE PRN IV DECREASED GLUCOSE; Start 06/25/19 at 21:00 IV Flush (NS 3 ml) 3 ml PER PROTOCOL IV Last administered on 06/29/19at 23:48; Admin Dose 3 ML; Start 06/26/19 at 00:30 Ondansetron HCl (Zofran Inj) 4 mg Q6H PRN IV NAUSEA/VOMITING; Start 06/26/19 at 00:30 Acetaminophen (Tylenol Tab) 650 mg Q6H PRN PO .PAIN 1-3 OR TEMP Last administered on 06/30/19at 08:45; Admin Dose 650 MG; Start 06/26/19 at 00:30 Albuterol/ Ipratropium (Duoneb) 3 ml Q2H RESP THERAPY PRN HHN SHORTNESS OF BREATH; Start 06/26/19 at 00:30 Piperacillin Sod/ Tazobactam Sod 100 ml @ 200 mls/hr Q6 IVPB Last administered on 06/30/19at 07:28; Admin Dose 200 MLS/HR; Start 06/26/19 at 12:00 Lactobacillus Acidophilus/ Rhamnosus (Culturelle) 1 cap BID PO Last administered on 06/30/19at 08:42; Admin Dose 1 CAP; Start 06/26/19 at 21:00 Phenazopyridine HCl (Pyridium) 200 mg TID PO Last administered on 06/30/19at 08:42; Admin Dose 200 MG; Start 06/29/19 at 21:00; Stop 07/01/19 at 20:59 Tramadol HCl (Ultram) 50 mg Q6H PRN PO MODERATE PAIN LEVEL 4-6; Start 06/30/19 at 09:00 VTE Prophylaxis Risk score (from Nsg)>0 risk: 8 SCD applied (from Ns): Yes Lines/Catheters IV Catheter Type: Hernandez in Place: No Assessment/Plan Hospital Course Subjective Patient foot pain has nearly resolved, diarrhea has improved and no rectal bleeding Objective Physical exam General: Patient is laying in bed and answers questions appropriately Mentation: Patient is alert and oriented 4, Head: Normocephalic atraumatic Eyes: EOMI, pupils reactive to light Neck: Supple, nontender, midline Respiratory: Clear to auscultation bilaterally Cardiovascular: regular rate, no obvious murmurs Gastrointestinal: non-tender to palpation, bowel sounds heard. Neurological: Moves all extremities spontaneously Skin: No new skin lesions Assessment and plan Rectal bleeding -Status post colonoscopy, no clear signs of rectal bleeding cause except for large hemorrhoids which GI recommends elective outpatient surgical correction. -Monitor closely Diarrhea -Ongoing for approximately 1 year, currently stable, patient will need to follow-up with group account director in the outpatient setting Scattered pulmonary nodules -CT chest done, patient knows to follow-up with repeat CT chest in 6 to 12 months. -Patient knows the importance of this as she does have a history of breast carcinoma status post lumpectomy Recurrent urinary tract infection -On broad-spectrum antibiotic -Infectious disease consulted -Patient has been having on and off UTIs and UTI symptoms for many months now -Pain still apparent, this issue might not be related to only a urinary tract infection, spoke to patient stating that we would need to adequately treat the urinary tract infection and if still painful may need urology consultation either inpatient or outpatient. Acute kidney injury -Nephrology on board Left ankle pain -Nearly resolved, however CT showing signs of possible fracture, orthopedic surgeon consulted to review CT -Old and new fracture seen by orthopedic surgeon, special brace\boot ordered, needs to wear this for at least 4 weeks History of breast cancer -Status post lobectomy 2 years ago, in remission Dyslipidemia -Continue home meds History of pulmonary embolism -Monitor Hypertension -Continue home meds and adjust as needed Diabetes mellitus -Insulin while in house Electrolyte derangement -Replete as needed Diabetic neuropathy -Patient allergic to gabapentin, recommended starting Lyrica once her current above issues have resolved in the outpatient setting. Disposition -Follow-up with infectious disease recommendations, patient still fairly sympt omatic from the urinary standpoint. CLARIBEL HASTINGS Jun 30, 2019 11:10
--- NOTE | 2019-06-30 14:07 | CONS ---
DATE OF ADMISSION: 06/25/2019 DATE OF CONSULTATION: 06/30/2019 CONSULTING SERVICE: Orthopedic surgical consultation. HISTORY OF PRESENT ILLNESS: The patient is a 74-year-old female who was admitted on 06/25/2019 pain when she came to the emergency room complaining of rectal bleeding along with the diarrhea. in addition to rectal bleeding. She was complaining of pain and swelling involving her left ankle wh ich started about 2 weeks ago following a twisting injury in her bathroom. PAST MEDICAL HISTORY: She has multiple medical problems including hypertension, diabetes mellitus ty pe 2, hyperlipidemia, history of breast cancer status post lumpectomy and a history of pulmonary embo lism. PHYSICAL EXAMINATION: My examination revealed a 74-year-old female who is showing mild swelling and tenderness over the lateral aspect of the left ankle just below the level of the tip of the lateral m alleolus. Range of motion of the left ankle was fair without too much pain or instabilities. Range of motion of the left ankle was minimally limited. DIAGNOSTIC STUDIES: X-rays of the left ankle along with the CT scan revealed the following: There a re some small bony fragments probably from old fracture involving the distal end of the lateral malle olus. There is a small piece of bone, possibly from avulsion fracture, the talus. It appeared that a small piece of talus may have been pulled off at the insertion of the talofibular ligament. DIAGNOSTIC IMPRESSION: 1. Eversion fracture of a small fragment of the talus at the talar insertion of the talofibular liga ment, about 2 weeks old. 2. Old small fracture fragment over near the distal end of the lateral malleolus, probably from old injury. RECOMMENDATIONS FOR MANAGEMENT: Protection and immobilization of the left ankle in a short leg brace and this has been ordered. Dictated By: JERAMIE GRAFF MD IK/NTS Conf#: [id number] DID#: [id number] CC: CLARIBEL HASTINGS MD;*EndCC*
--- NOTE | 2019-06-30 19:30 | CONS ---
Assessment/Plan Assessment/Plan Hospital Course (Demo Recall) ID PROGRESS NOTE CURRENT ABX: DAY # => Zosyn #5.5 24H INTERVAL SUMMARY * Stable, no fevers, dysuria improved w/Pyridium * Seen by ortho * Persistent == SYMPTOMATIC BURNING DYSURIA == Rx Pyridium provided yesterday * Recurrent UTI's vs atypical cystitis ? for many months * Query Diabetic dysreflexia ? Ureter vs other reflex DM neuropathy ? MICRO * 06/25/19 URINE (+) URINE CULTURE Final Organism 1 MIXED GRAM POSITIVE ORGANISMS COLONY COUNT <10,000 CFU/ml DIAGNOSTIC IMAGING * X-rays of the left ankle along with the CT scan revealed the following: There are some small bony fragments probably from old fracture involving the distal end of the lateral malleolus. There is a small piece of bone, possibly from avulsion fracture, the talus. It appeared that a small piece of talus may have been pulled off at the insertion of the talofibular ligament. PHYSICAL EXAMINATION: GENERAL: VSS, NAD HEENT: AT, NC, NECK: Supple, CHEST: Rise symmetrical HEART: Pulse RRR ABDOMEN: Soft EXTREMITIES: Warm, dry SKIN: No rash, no diaphoresis ID ASSESSMENT 74 yo F admit with: Rectal bleeding on admission * -Status post colonoscopy, no clear signs of rectal bleeding cause except for large hemorrhoids which GI recommends elective outpatient surgical correction. Diarrhea * -Ongoing for approximately 1 year, currently stable, patient will need to follow-up with management accounts manager in the outpatient setting Recurrent urinary tract infection == Polymicrobial low colony count bacteruria * == SYMPTOMATIC BURNING DYSURIA * -Patient has been having on and off UTIs and UTI symptoms for many months now * -Pain still apparent, this issue might not be related to only a urinary tract infection == possible DM neuropathy/reflux ? other etiology> Diabetes mellitus w/Diabetic neuropathy Acute kidney injury-Nephrology on board Left ankle pain * -Old and new fracture seen by orthopedic surgeon, special brace\boot ordered, needs to wear this for at least 4 weeks History of breast cancer * -Status post lobectomy 2 years ago, in remission Scattered pulmonary nodules * -CT chest done, patient knows to follow-up with repeat CT chest in 6 to 12 months. Dyslipidemia History of pulmonary embolism Hypertension (-) MRSA Nares ABX ALLERGIES: KNDA INVASIVES: CURRENT ABX: DAY # => Zosyn #5.5 ID RECOMMENDATIONS/PLAN: 1. Recurrent UTI's vs atypical cystitis ? for many months -- recommend referral to OP Female Urology specialist . Consultation Date/Type/Reason Admit Date/Time Jun 25, 2019 at 20:47 Initial Consult Date 06/26/19 Date/Time of Note DATE: 06/30/19 TIME: 19:17 Exam/Review of Systems Exam Vitals Vital Signs Date Temp Pulse Resp B/P (MAP) Pulse Ox O2 O2 Flow FiO2 Time Delivery Rate 06/30/19 98.1 72 14 133/68 96 Room Air 19:16 (89) Intake and Output 06/29/19 06/29/19 06/30/19 1515:00 23:00 07:00 IntakeIntake Total 340 ml 2120 ml 580 ml BalanceBalance 340 ml 2120 ml 580 ml Results Result Diagram: 06/30/19 0434 06/30/19 0434 Results 24hrs Laboratory Tests Test 06/30/19 04:34 White Blood Count 5.8 Red Blood Count 2.87 L Hemoglobin 9.4 L Hematocrit 28.6 L Mean Corpuscular Volume 99.7 Mean Corpuscular Hemoglobin 32.8 Mean Corpuscular Hemoglobin Concent 32.9 Red Cell Distribution Width 12.1 Platelet Count 204 Mean Platelet Volume 8.9 Immature Granulocytes % 0.500 H Neutrophils % 58.8 Lymphocytes % 27.8 Monocytes % 8.9 Eosinophils % 3.5 Basophils % 0.5 Nucleated Red Blood Cells % 0.0 Immature Granulocytes # 0.030 Neutrophils # 3.4 Lymphocytes # 1.6 Monocytes # 0.5 Eosinophils # 0.2 Basophils # 0.0 Nucleated Red Blood Cells # 0.0 Sodium Level 139 Potassium Level 3.9 Chloride Level 112 H Carbon Dioxide Level 20 L Anion Gap 7 Blood Urea Nitrogen 19 Creatinine 1.06 H Est Glomerular Filtrat Rate mL/min Glucose Level 155 Calcium Level 9.3 Phosphorus Level 2.7 Magnesium Level 1.9 Medications Medication Current Medications Dextrose (D50w Syringe) ONCE PRN IV DECREASED GLUCOSE; Start 06/25/19 at 21:00 IV Flush (NS 3 ml) 3 ml PER PROTOCOL IV Last administered on 06/29/19at 23:48; Admin Dose 3 ML; Start 06/26/19 at 00:30 Ondansetron HCl (Zofran Inj) 4 mg Q6H PRN IV NAUSEA/VOMITING; Start 06/26/19 at 00:30 Acetaminophen (Tylenol Tab) 650 mg Q6H PRN PO .PAIN 1-3 OR TEMP Last administered on 06/30/19at 17:35; Admin Dose 650 MG; Start 06/26/19 at 00:30 Albuterol/ Ipratropium (Duoneb) 3 ml Q2H RESP THERAPY PRN HHN SHORTNESS OF BREATH; Start 06/26/19 at 00:30 Piperacillin Sod/ Tazobactam Sod 100 ml @ 200 mls/hr Q6 IVPB Last administered on 06/30/19at 17:35; Admin Dose 200 MLS/HR; Start 06/26/19 at 12:00 Lactobacillus Acidophilus/ Rhamnosus (Culturelle) 1 cap BID PO Last administered on 06/30/19at 08:42; Admin Dose 1 CAP; Start 06/26/19 at 21:00 Phenazopyridine HCl (Pyridium) 200 mg TID PO Last administered on 06/30/19at 12:29; Admin Dose 200 MG; Start 06/29/19 at 21:00; Stop 07/01/19 at 20:59 Tramadol HCl (Ultram) 50 mg Q6H PRN PO MODERATE PAIN LEVEL 4-6; Start 06/30/19 at 09:00 Amlodipine Besylate (Norvasc) 5 mg DAILY PO ; Start 06/30/19 at 18:30; Status KAILASH CHAUDHARI NP Jun 30, 2019 19:29
[2019-06-30] MEDS: AMLODIPINE 5 MG TAB PO SCH (21:06)
[2019-07-01 01:08] VITALS: BP 141/67; PULSE 70; RESP 18
[2019-07-01 03:49] VITALS: BP 141/68; PULSE 74; RESP 20
[2019-07-01] MEDS: PIPER-TAZO 3.375 GM IV (PMX) 100 ML IVPB SCH ×2 (05:16→11:12)
--- NOTE | 2019-07-01 09:37 | PN ---
DATE: 07/01/2019 SUBJECTIVE: The patient is stable. No events overnight. The patient continues to complain about dy suria. No other events noted. OBJECTIVE: VITAL SIGNS: Blood pressure is 115/74, pulse 77, respirations 18, temperature 98.8. HEENT: Head is normocephalic. NECK: Supple. HEART: Regular rate. LUNGS: Show diminished breath sounds at the base. ABDOMEN: Soft, nontender to palpation without rebound or guarding. EXTREMITIES: Negative for clubbing, cyanosis, no edema. DERMATOLOGIC: No rashes. MUSCULOSKELETAL: No joint effusion. NEUROLOGIC: No change in exam. MEDICATIONS: Have been reviewed. LABORATORY DATA: Has been reviewed. IMAGING STUDIES: Have been reviewed. ASSESSMENT AND PLAN: 1. Nonoliguric acute kidney injury with unknown baseline creatinine. Etiology of acute kidney injur y is secondary to hemodynamics. Renal function is improving. Continue current treatment plan, suppo rtive care, renally dose all medication. 2. Hyperkalemia. Etiology is multifactorial secondary to ARB effect, Aldactone effect, improved. 3. Chronic kidney disease secondary to hypertension and diabetes. Continue treatment of acute kidne y injury as above. Continue disease factor modification. 4. Metabolic acidosis, improving. 5. Hypomagnesemia. Continue to monitor and replete. 6. Anemia. Monitor hemoglobin and hematocrit levels. 7. Mineral bone disorder. Monitor calcium and phosphorus levels. 8. Rectal bleed status post colonoscopy with evidence of hemorrhoids. Continue to monitor. 9. Urinary tract infection. Continue current antibiotic regimen. 10. History of breast cancer status post lumpectomy. 11. History of pulmonary hypertension. 12. History of hypertension. 13. Diabetes. 14. Pulmonary nodules. Continue to monitor. Workup per primary team. Dictated By: JANAE SERRATO DO NR/NTS Conf#: [id number] DID#: [id number] CC: CLARIBEL HASTINGS MD; TATE CORREIA MD;*End*
[2019-07-01] MEDS: LACTOBACILLUS RHAMNOSUS CAP PO SCH (11:08)
[2019-07-01] MEDS: AMLODIPINE 5 MG TAB PO SCH (11:11)
[2019-07-01] MEDS: PHENAZOPYRIDINE 200 MG TAB PO SCH ×2 (11:12→14:01)
--- NOTE | 2019-07-01 14:41 | CONS ---
Assessment/Plan Assessment/Plan Hospital Course (Demo Recall) Patient is alert sitting up in a chair denies pain no dysuria no hematuria. Urine culture growing yeast. Antimicrobials: Zosyn day #6 Physical examination: This is a well-developed obese elderly woman who is alert in no distress. Head atraumatic normocephalic neck is supple chest rise sy mmetrical breath sounds clear heart S1-S2 abdomen soft bowel sounds present Assessment: 1. Status post rectal bleeding 2. Urinary tract infection 3. Left ankle fracture Plan: Change antibiotics to oral fluconazole, continue left ankle immobilization with a short leg brace as per Ortho recommendations Consultation Date/Type/Reason Admit Date/Time Jun 25, 2019 at 20:47 Initial Consult Date 06/26/19 Type of Consult id Date/Time of Note DATE: 07/01/19 TIME: 14:40 Exam/Review of Systems Exam Vitals Vital Signs Date Temp Pulse Resp B/P (MAP) Pulse Ox O2 O2 Flow FiO2 Time Delivery Rate 07/01/19 03:49 Intake and Output 06/30/19 06/30/19 07/01/19 1515:00 23:00 07:00 IntakeIntake Total 860 ml 360 ml 100 ml BalanceBalance 860 ml 360 ml 100 ml Results Result Diagram: 07/01/19 0939 07/01/19 0939 Results 24hrs Laboratory Tests Test 06/30/19 19:50 07/01/19 09:39 Stool Occult Blood NEGATIVE White Blood Count 5.2 Red Blood Count 2.82 L Hemoglobin 9.1 L Hematocrit 28.0 L Mean Corpuscular Volume 99.3 Mean Corpuscular Hemoglobin 32.3 Mean Corpuscular Hemoglobin Concent 32.5 Red Cell Distribution Width 12.4 Platelet Count 201 Mean Platelet Volume 8.9 Immature Granulocytes % 0.600 H Neutrophils % 56.0 Lymphocytes % 31.5 Monocytes % 6.9 Eosinophils % 4.4 Basophils % 0.6 Nucleated Red Blood Cells % 0.0 Immature Granulocytes # 0.030 Neutrophils # 2.9 Lymphocytes # 1.6 Monocytes # 0.4 Eosinophils # 0.2 Basophils # 0.0 Nucleated Red Blood Cells # 0.0 Sodium Level 141 Potassium Level 3.7 Chloride Level 115 H Carbon Dioxide Level 21 Anion Gap 5 Blood Urea Nitrogen 17 Creatinine 1.19 H Est Glomerular Filtrat Rate mL/min Glucose Level 142 Calcium Level 9.2 Phosphorus Level 3.4 Magnesium Level 1.9 Medications Medication Current Medications Dextrose (D50w Syringe) ONCE PRN IV DECREASED GLUCOSE; Start 06/25/19 at 21:00 IV Flush (NS 3 ml) 3 ml PER PROTOCOL IV Last administered on 06/29/19 23:48; A dmin Dose 3 ML; Start 06/26/19 at 00:30 Ondansetron HCl (Zofran Inj) 4 mg Q6H PRN IV NAUSEA/VOMITING; Start 06/26/19 at 00:30 Acetaminophen (Tylenol Tab) 650 mg Q6H PRN PO .PAIN 1-3 OR TEMP Last adm inistered on 06/30/19 17:35; Admin Dose 650 MG; Start 06/26/19 at 00:30 Albuterol/ Ipratropium (Duoneb) 3 ml Q2H RESP THERAPY PRN HHN SHORTNESS OF BREATH; Start 06/26/19 at 00:30 Piperacillin Sod/ Tazobactam Sod 100 ml @ 200 mls/hr Q6 IVPB Last administered on 07/01/19 11:12; Admin Dose 200 MLS/HR; Start 06/26/19 at 12:00 Lactobacillus Acidophilus/ Rhamnosus (Culturelle) 1 cap BID PO Last admi nistered on 07/01/19 11:08; Admin Dose 1 CAP; Start 06/26/19 at 21:00 Phenazopyridine HCl (Pyridium) 200 mg TID PO Last administered on 07/01/19 14:01; Admin Dose 200 MG; Start 06/29/19 at 21:00; Stop 07/01/19 at 20:59 Tramadol HCl (Ultram) 50 mg Q6H PRN PO MODERATE PAIN LEVEL 4-6; Start 06/30/19 at 09:00 Amlodipine Besylate (Norvasc) 5 mg DAILY PO Last administered on 07/01/19 11:11; Admin Dose 5 MG; Start 06/30/19 at 20:30 TEE GIL NP Jul 01, 2019 14:41
--- NOTE | 2019-07-01 14:43 | DS ---
Date/Time of Note Date/Time of Note DATE: 07/01/19 TIME: 14:32 Discharge Summary Admission/Discharge Info Admit Date/Time Jun 25, 2019 at 20:47 Discharge Date/Time Discharge Diagnosis 74-year-old female with a history of hypertension, type 2 diabetes, dyslipide manjit, breast cancer status post lumpectomy, pulmonary embolism who presented to the ER complaining of rectal bleeding and diarrhea. 1. Rectal bleeding - - no more bleeding - Last colonoscopy 6 years ago, per patient, it showed 2 polyps (benign) - colonoscopy showed gastritis 2. Diarrhea: now with multiple loose stools from prep, : resolved 3. Scattered pulmonary nodules: -Patient with a history of breast carcinoma status post lumpectomy. Patient never had a chemoradiation. Patient has never been told about pulmonary nodule - dedicated chest CT : Small bilateral pulmonary nodules. Correlation with CT scan of the chest is 6-12 months is advised. 4. Acute renal insufficiency with metabolic acidosis and hyperkalemia r/o CKD : Nephro managing, Cr seems to be at baseline, tren labs, avoid nephrotoxic drugs 5. Breast cancer, status post lumpectomy 2 years ago: No chemo/radiation / Per patient, in remission 6. Dyslipidemia: Continue statin 7. History of pulmonary embolism 8. Left ankle pain/swelling : recent mechanical fall patient with multiple chronic changes but also concern for subacute fracture,, roughly about 2 weeks old per Ortho 9. Hypertension: Adjust BP meds as needed 10. Type 2 diabetes: hold metformin for acidosis and renal failure : ssi and basal insulin for now 11. Yeast UTI 12. Hypomagnesemia: repleted Disclaimer: Inadvertent spelling and grammatical errors as well as erroneous comments are likely due to EHR/dictation software use and do not reflect on the quality of delivered patient care. They will be resolved as soon as possible once noted. Also, please note that the electronic time recorded on this node does not necessarily reflect the actual time of the visit. Patient Condition: Stable Consults GI: Ra Montejo MD, MD Infectious disease: Willie Quesada MD Nephrology: Guero Hidalgo MD DO Orthopedic surgery: Dr. Carver . Procedures See hospital course . Hospital Course 74-year-old female who had presented to the emergency room with complaints of rectal bleeding and diarrhea for the last several months. Also with left ankle pain. Patient also had multiple comorbidities. Regarding her diarrhea, she was seen by GI and she had a colonoscopy June 28, 2019 that showed large external and moderate internal hemorrhoids otherwise normal colonoscopy. Rectal bleeding resolved and was assessed to be secondary to hemorrhoids. Regarding her left ankle pain she underwent CAT scan of the lower extremity after an ankle x-ray showed no fracture but she had persistent pain. CT showed several small ossific bodies at the lateral aspect of the ankle likely chronic and sequelae of old injury however 1 of the bodies had a curvilinear appearance that could represent a more acute avulsion fracture. She was seen by orthopedic surgery who recommended protection and immobilization of left ankle and a short leg brace which was ordered. Patient was also seen by physical therapy and recommended for home health physical therapy with a frontwheel walker. However the comorbidities includes acute on chronic renal failure which was mild and now has resolved. This is likely related to ongoing diarrhea. Patient was also found to have a yeast urinary tract infection for which she will be continued on antifungals. For her high blood pressure, she was maintained on her prior antihypertensives without significant change. Patient has a history of breast cancer status post lumpectomy 2 years ago and was said to be in remission without acute issues on this admission. She has done very well and at this time is stable for discharge. . Home Meds Reported Medications Phenazopyridine Hcl* (Pyridium*) 200 Mg Tab, 200 MG PO TID PRN for PAIN, TAB 06/26/19 Carvedilol* (Carvedilol*) 25 Mg Tablet, 25 MG PO DAILY for 90 Days 06/26/19 Spironolactone* (Aldactone*) 25 Mg Tablet, 25 MG PO DAILY for 90 Days 06/26/19 Irbesartan* (Irbesartan*) 300 Mg Tablet, 300 MG PO DAILY for 90 Days, #90 06/26/19 Atorvastatin Calcium (Atorvastatin Calcium) 20 Mg Tablet, 20 MG PO DAILY for 90 Days, #90 TAB 06/26/19 Metformin* (Glucophage*) 500 Mg Tab, 500 MG PO QPM for 90 Days 06/26/19 Follow-up Plan 1. Followup with your primary doctor within the next 1-2 weeks. -Ask your doctor to repeat your urine culture to ensure your infection is resolved. -Also please make sure you follow-up with an orthopedic surgeon. Your primary care doctor can refer you. She will your primary care doctor copies of your CT scan. -For your pulmonary nodules, you will benefit from a repeat CT of your chest in about 6 to 12 months. Please also let your primary care doctor know. If you don't have a primary care doctor, please let someone know, we can give you resources that may help you pick one. You may call Dr Aaron Linn's office. he's accepting new patients Name, Degree: Aaron Linn MD Specialty: Internal Medicine Comments: Office Address: [address] [place] [address] [place], [place] [id number] Office Office You may also call your insurance company to assign one to you. 2. Review your medication list with your nurse before leaving and if you need new prescriptions please let your nurse know. 3. I may have made changes to your home medications or given you new prescriptions, please let your primary doctor know as well. 4. Stay compliant with your medications and report any side effects to your PCP or pharmacist. 5. Return to the ER if you have any concerns and cannot reach your doctors or call your insurance company, they usually have a nurse that can help you. . Primary Care Provider Not On Staff Doctor Time spent on discharge: > 30 minutes Pending Labs Laboratory Tests Test 06/30/19 19:50 07/01/19 09:39 Stool Occult Blood NEGATIVE (NEGATIVE) White Blood Count 5.2 10^3/ul (4.8-10.8) Red Blood Count 2.82 10^6/ul (4.20-5.40) Hemoglobin 9.1 g/dl (12.0-16.0) Hematocrit 28.0 % (37.0-47.0) Mean Corpuscular Volume 99.3 fl (82.0-101.0) Mean Corpuscular Hemoglobin 32.3 pg (29.0-33.0) Mean Corpuscular 32.5 g/dl (32.0-37.0) Hemoglobin Concent Red Cell Distribution Width 12.4 % (11.5-14.5) Platelet Count 201 10^3/UL (140-415) Mean Platelet Volume 8.9 fl (7.4-10.4) Immature Granulocytes % 0.600 % (0.001-0.429) Neutrophils % 56.0 % (39.0-77.0) Lymphocytes % 31.5 % (15.0-51.0) Monocytes % 6.9 % (0.0-11.0) Eosinophils % 4.4 % (0.0-7.0) Basophils % 0.6 % (0.0-2.0) Nucleated Red Blood Cells % 0.0 /100WBC (0.0-0.0) Immature Granulocytes # 0.030 10^3/ul (0.0-0.031) Neutrophils # 2.9 10^3/ul (1.6-7.5) Lymphocytes # 1.6 10^3/ul (0.8-2.9) Monocytes # 0.4 10^3/ul (0.3-0.9) Eosinophils # 0.2 10^3/ul (0.0-0.5) Basophils # 0.0 10^3/ul (0.0-0.1) Nucleated Red Blood Cells # 0.0 10^3/ul (0.0-0.0) Sodium Level 141 mmol/L (135-144) Potassium Level 3.7 mmol/L (3.5-5.1) Chloride Level 115 mmol/L (97-110) Carbon Dioxide Level 21 mmol/L (21-31) Anion Gap 5 (5-13) Blood Urea Nitrogen 17 mg/dl (7-20) Creatinine 1.19 mg/dl (0.44-1.00) Est Glomerular Filtrat mL/min (>60) Rate mL/min Glucose Level 142 mg/dl (70-220) Calcium Level 9.2 mg/dl (8.4-10.2) Phosphorus Level 3.4 mg/dl (2.5-4.9) Magnesium Level 1.9 mg/dl (1.7-2.5) Microbiology Date/Time Source Procedure Growth Status 06/30/19 19:50 Feces Stool Culture - Preliminary Coliform Resulted JOSEFINA WEEMS Jul 01, 2019 14:43
--- NOTE | 2019-07-01 14:48 | PDOCDIS ---
Discharge Instructions CONDITION [id number] Patient Condition: [id number] Stable HOME CARE INSTRUCTIONS: [id number] Diet Instructions: [id number] Regular ACTIVITY: [id number] Activity Restrictions: [id number] Slowly Increase Activity Rest between Activity Avoid heavy lifting [id number] Bathing Restrictions: Unmbu0e Shower FOLLOW UP/APPOINTMENTS Follow-up Plan 1. Followup with your primary doctor within the next 1-2 weeks. -Ask your doctor to repeat your urine culture to ensure your infection is resolved. -Also please make sure you follow-up with an orthopedic surgeon. Your primary care doctor can refer you. She will your primary care doctor copies of your CT scan. -For your pulmonary nodules, you will benefit from a repeat CT of your chest in about 6 to 12 months. Please also let your primary care doctor know. If you don't have a primary care doctor, please let someone know, we can give you resources that may help you pick one. You may call Dr Aaron Linn's office. he's accepting new patients Name, Degree: Aaron Linn MD Specialty: Internal Medicine Comments: Office Address: [address] [place] [address] Office Office You may also call your insurance company to assign one to you. 2. Review your medication list with your nurse before leaving and if you need n ew prescriptions please let your nurse know. 3. I may have made changes to your home medications or given you new prescriptio ns, please let your primary doctor know as well. 4. Stay compliant with your medications and report any side effects to your PCP or pharmacist. 5. Return to the ER if you have any concerns and cannot reach your doctors or call your insurance company, they usually have a nurse that can help you. . JOSEFINA WEEMS Jul 01, 2019 14:48
[2019-07-01] MEDS ORDERED: FLUCONAZOLE 100 MG TAB PO SCH (15:00)
[2019-07-01 19:57] VITALS: BP 120/81; PULSE 77; RESP 18
== END 2019-07-01 20:15 | disposition home health service (06) | DRG 378 ==
LOC: E/R 17:34 → TEL 20:47 → MS1 06-28 22:55
PROVIDERS: ADMIT Internal Medicine; ATTEND Family Medicine
PROC: 0DJD8ZZ Inspection of Lower Intestinal Tract, Via Natural or Artificial Opening Endoscopic (ICD-10-PCS; principal; 2019-06-28 13:00)
DX: K62.5 Hemorrhage of anus and rectum (principal); N17.9 Acute kidney failure, unspecified; E87.2 Acidosis; B37.49 Other urogenital candidiasis; K64.8 Other hemorrhoids; K64.4 Residual hemorrhoidal skin tags; D64.9 Anemia, unspecified; E83.42 Hypomagnesemia; E11.22 Type 2 diabetes mellitus with diabetic chronic kidney disease; E11.40 Type 2 diabetes mellitus with diabetic neuropathy, unspecified; E87.5 Hyperkalemia; E78.5 Hyperlipidemia, unspecified; I12.9 Hypertensive chronic kidney disease with stage 1 through stage 4 chronic kidney disease, or unspecified chronic kidney disease; M25.572 Pain in left ankle and joints of left foot; M25.472 Effusion, left ankle; N18.9 Chronic kidney disease, unspecified; R91.8 Other nonspecific abnormal finding of lung field; R19.7 Diarrhea, unspecified; S92.152A Displaced avulsion fracture (chip fracture) of left talus, initial encounter for closed fracture; W01.0XXA Fall on same level from slipping, tripping and stumbling without subsequent striking against object, initial encounter; Z86.711 Personal history of pulmonary embolism; Z85.3 Personal history of malignant neoplasm of breast; Z87.891 Personal history of nicotine dependence
CPT/HCPCS: 36415; 71250; 73610; 73700; 74176; 80048; 80053; 81001; 81003; 82043; 82270; 83735; 84100; 84132; 84155; 84300; 85025; 85610; 85730; 86850; 86900; 86901; 87045; 87075; 87086; 93005; 97161; J0696; J1815; J2405; J2543; J3475; J7030; L4387